=== PATIENT | female | born 1945 | race Caucasian/White ===

== ENCOUNTER 2019-05-13 15:45 | Emergency (ER) | payer MEDICARE, BC ==
--- NOTE | 2019-05-13 16:54 | EDM.PDOC ---
ED HPI GENERAL MEDICAL PROBLEM - General Chief Complaint: Genitourinary Problem Stated Complaint: UTI Time Seen by Provider: 05/13/19 16:52 Source of Information: Reports: Patient History Limitations: Reports: No Limitations - History of Present Illness INITIAL COMMENTS - FREE TEXT/NARRATIVE: 74-year-old female who reports 2 days ago began with lightheadedness, right flank pain that has been intermittent and "itching" with urination. She reports that she had similar symptoms in the past because of low sodium and also because of a "bladder infection" back in December that lasted for 2 months and for which she was tested through the [facility]. The pain in her right flank is rated by her as a 2/10. It is a sharp/crampy type pain. It is not present now. It seems to come and go. She also has noticed over the past day that she has had some pink tinged urine. No back pain. No nausea or vomiting. No fevers or chills. She's been eating and drinking normally. She does feel fatigued and tired over the past few days as well. There are no other associated signs or symptoms. There are no other modifying factors. 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: Other (see below) (Nothing) R lower abdomen Pain Score (Numeric/FACES): 2 - Related Data Allergies Allergy/AdvReac Type Severity Reaction Status Date / Time codeine Allergy Confusion Verified 05/13/19 16:04 erythromycin base Allergy Rash Verified 05/13/19 16:04 [Erythromycin Base] indomethacin Allergy Cannot Verified 05/13/19 16:04 Remember meperidine HCl [From Demerol] Allergy Hypotension Verified 05/13/19 16:04 niacin Allergy Rash Verified 05/13/19 16:04 prednisone Allergy Rash Verified 05/13/19 16:04 pregabalin Allergy Cannot Verified 05/13/19 16:04 Remember Sulfa (Sulfonamide Allergy Rash Verified 05/13/19 16:04 Antibiotics) tramadol Allergy Dizziness Verified 05/13/19 16:04 zoster vaccine live Allergy Swelling Verified 05/13/19 16:04 [From ZOSTAVAX (PF)] Home Meds: Home Meds Cholecalciferol (Vitamin D3) [Vitamin D] 2,000 unit PO DAILY 07/08/13 [History] Estrogen,Con/M-Progest Acet [Prempro 0.3 MG-1.5 MG] 1 tab PO DAILY 07/08/13 [ History] carBAMazepine [Carbamazepine] 400 mg PO 1400 07/08/13 [History] Aspirin [Aspirin EC] 325 mg PO DAILY 05/13/19 [History] Estradiol [Estrace] 1 gm VG MOFR 05/13/19 [History] Losartan Potassium 75 mg DAILY 05/13/19 [History] Metoprolol Succinate 50 mg 1800 05/13/19 [History] atorvaSTATin Calcium [Atorvastatin Calcium] 40 mg BEDTIME 05/13/19 [History] carBAMazepine [Carbamazepine] 600 mg PO BID 05/13/19 [History] Past Medical History Cardiovascular History: Reports: High Cholesterol, Hypertension, Other (See Below) Other Cardiovascular History: mitral valve regurgiation Gastrointestinal History: Reports: GERD Genitourinary History: Reports: UTI, Recurrent 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: Musculoskeletal History: Reports: Fracture Other Musculoskeletal History: hx fx L toes Neurological History: Reports: Other (See Below) (Trigeminal neuralgia) Psychiatric History: Reports: Anxiety, Depression Endocrine/Metabolic History: Reports: Obesity/BMI 30+ - Infectious Disease History Infectious Disease History: Reports: Chicken Pox, Measles - Past Surgical History HEENT Surgical History: Reports: Cataract Surgery, Tonsillectomy GI Surgical History: Reports: Cholecystectomy, Colonoscopy, EGD Musculoskeletal Surgical History: Reports: None Social & Family History - Tobacco Use Smoking Status *Q: Never Smoker - Caffeine Use Caffeine Use: Reports: None - Alcohol Use Alcohol Use History: No - Recreational Drug Use Recreational Drug Use: No - Living Situation & Occupation Living situation: Reports: Occupation: Retired Social History Comment: Lives alone. ED ROS GENERAL - Review of Systems Review Of Systems: See Below Constitutional: Reports: Fatigue HEENT: Reports: No Symptoms Respiratory: Reports: No Symptoms Cardiovascular: Reports: Lightheadedness GI/Abdominal: Reports: No Symptoms : Reports: Dysuria, Flank Pain (Right) Musculoskeletal: Reports: No Symptoms Skin: Reports: No Symptoms Neurological: Reports: Dizziness (Mild) Hematologic/Lymphatic: Reports: No Symptoms Immunologic: Reports: No Symptoms ED EXAM, GENERAL - Physical Exam Exam: See Below Exam Limited By: No Limitations General Appearance: Alert, WD/WN, No Apparent Distress, Other (Nontoxic appearing) Eye Exam: Bilateral Eye: EOMI, Normal Inspection, PERRL Ears: Normal External Exam Ear Exam: Bilateral Ear: Auricle Normal Nose: Normal Inspection, Normal Mucosa, No Blood Throat/Mouth: Normal Inspection, Normal Lips, Normal Oropharynx, Normal Voice, No Airway Compromise Head: Atraumatic, Normocephalic Neck: Normal Inspection, Supple, Non-Tender, Full Range of Motion Respiratory/Chest: No Respiratory Distress, Lungs Clear, Normal Breath Sounds, No Accessory Muscle Use, Chest Non-Tender Cardiovascular: Normal Peripheral Pulses, Regular Rate, Rhythm, No Edema, No JVD Peripheral Pulses: 2+: Radial (L), Radial (R), Dorsalis Pedis (L), Dorsalis Pedis (R) GI/Abdominal: Normal Bowel Sounds, Soft, Non-Tender, No Mass Back Exam: Normal Inspection Extremities: Normal Inspection, Normal Range of Motion, Non-Tender, No Pedal Edema, Normal Capillary Refill, Other (Radial and dorsalis pedis pulses are present and symmetric bilaterally.) Neurological: Alert, Oriented, CN II-XII Intact, Normal Cognition, No Motor/ Sensory Deficits Skin Exam: Warm, Dry, Intact, Normal Color, No Rash EKG INTERPRETATION EKG Date: 05/13/19 Time: 16:52 Rhythm: NSR Rate (Beats/Min): 65 [place]: Normal P-Wave: Present QRS: Normal ST-T: Normal QT: Normal Comparison: No Change (From previous EKG performed on 11/17/2014.) EKG Interpretation Comments: Normal EKG. Course - Vital Signs Last Recorded V/S: Last Vital Signs Temp 36.4 C 05/13/19 15:54 Pulse 62 05/13/19 17:15 Resp 18 05/13/19 17:15 BP 160/97 H 05/13/19 17:15 Pulse Ox 99 05/13/19 17:15 Orthostatic Blood Pressure [ 175/87 Standing] Orthostatic Blood Pressure [ 165/95 Sitting] Orthostatic Blood Pressure [ 163/95 Supine] - Orders/Labs/Meds Orders: Active Orders 24 hr Category Date Time Status EKG Documentation Completion [RC] ASDIRECTED Care 05/13/19 17:10 Active Orthostatic Vital Signs [RC] ASDIRECTED Care 05/13/19 17:09 Active Abdomen Pelvis wo Cont [CT] Stat Exams 05/13/19 17:28 Taken EKG 12 Lead [EK] Routine Ther 05/13/19 17:09 Ordered Labs: Laboratory Tests 05/13/19 05/13/19 05/13/19 Range/Units 16:35 16:50 16:50 WBC 4.8 (4.5-12.0) X10-3/uL RBC 4.19 (3.23-5.20) x10(6)uL Hgb 14.1 (11.5-15.5) g/dL Hct 41.6 (30.0-51.3) % MCV 99.3 H (80-96) fL MCH 33.6 (27.7-33.6) pg MCHC 33.8 (32.2-35.4) g/dL RDW 12.0 (11.5-15.5) % Plt Count 223 (125-369) X10(3)uL MPV 7.1 L (7.4-10.4) fL Neut % (Auto) 56.2 (46-82) % Lymph % (Auto) 26.5 (13-37) % Dukes % (Auto) 12.0 (4-12) % Eos % (Auto) 4 (1.0-5.0) % Baso % (Auto) 1 (0-2) % Neut # (Auto) 2.7 (1.6-8.3) # Lymph # (Auto) 1.3 (0.6-5.0) # Dukes # (Auto) 0.6 (0.0-1.3) # Eos # (Auto) 0.2 (0.0-0.8) # Baso # (Auto) 0.0 (0.0-0.2) # Sodium 135 (135-145) mmol/L Potassium 4.1 (3.5-5.3) mmol/L Chloride 99 L (100-110) mmol/L Carbon Dioxide 30 (21-32) mmol/L BUN 15 (7-18) mg/dL Creatinine 0.6 (0.55-1.02) mg/dL Est Cr Clr Drug Dosing 66.05 mL/min Estimated GFR (MDRD) > 60 (>60) BUN/Creatinine Ratio 25.0 H (9-20) Glucose 100 (80-116) mg/dL Calcium 8.3 L (8.6-10.2) mg/dL Magnesium 1.8 (1.8-2.5) mg/dL Total Bilirubin 0.3 (0.1-1.3) mg/dL AST 30 H (5-25) IU/L ALT 53 H (12-36) U/L Alkaline Phosphatase 150 H (56-112) IU/L C-Reactive Protein (0.5-0.9) mg/dL Total Protein 6.8 (6.0-8.0) g/dL Albumin 3.7 (3.2-4.6) g/dL Globulin 3.1 g/dL Albumin/Globulin Ratio 1.2 Urine Color Yellow (YELLOW) Urine Appearance Clear (CLEAR) Urine pH 6.5 (5.0-6.5) Ur Specific [place] 1.015 (1.010-1.025) Urine Protein Negative (NEGATIVE) mg/dL Urine Glucose (UA) Normal (NORMAL) mg/dL Urine Ketones Negative (NEGATIVE) mg/dL Urine Occult Blood Negative (NEGATIVE) Urine Nitrite Negative (NEGATIVE) Urine Bilirubin Negative (NEGATIVE) Urine Urobilinogen Normal (NEGATIVE) mg/dL Ur Leukocyte Esterase Negative (NEGATIVE) Urine RBC 0-5 (0-5) Urine WBC 0-5 (0-5) Ur Squamous Epith Cells Occasional (NS,R,O) Urine Bacteria Few H (NS) 05/13/19 Range/Units 16:50 WBC (4.5-12.0) X10-3/uL RBC (3.23-5.20) x10(6)uL Hgb (11.5-15.5) g/dL Hct (30.0-51.3) % MCV (80-96) fL MCH (27.7-33.6) pg MCHC (32.2-35.4) g/dL RDW (11.5-15.5) % Plt Count (125-369) X10(3)uL MPV (7.4-10.4) fL Neut % (Auto) (46-82) % Lymph % (Auto) (13-37) % Dukes % (Auto) (4-12) % Eos % (Auto) (1.0-5.0) % Baso % (Auto) (0-2) % Neut # (Auto) (1.6-8.3) # Lymph # (Auto) (0.6-5.0) # Dukes # (Auto) (0.0-1.3) # Eos # (Auto) (0.0-0.8) # Baso # (Auto) (0.0-0.2) # Sodium (135-145) mmol/L Potassium (3.5-5.3) mmol/L Chloride (100-110) mmol/L Carbon Dioxide (21-32) mmol/L BUN (7-18) mg/dL Creatinine (0.55-1.02) mg/dL Est Cr Clr Drug Dosing mL/min Estimated GFR (MDRD) (>60) BUN/Creatinine Ratio (9-20) Glucose (80-116) mg/dL Calcium (8.6-10.2) mg/dL Magnesium (1.8-2.5) mg/dL Total Bilirubin (0.1-1.3) mg/dL AST (5-25) IU/L ALT (12-36) U/L Alkaline Phosphatase (56-112) IU/L C-Reactive Protein < 0.2 L (0.5-0.9) mg/dL Total Protein (6.0-8.0) g/dL Albumin (3.2-4.6) g/dL Globulin g/dL Albumin/Globulin Ratio Urine Color (YELLOW) Urine Appearance (CLEAR) Urine pH (5.0-6.5) Ur Specific [place] (1.010-1.025) Urine Protein (NEGATIVE) mg/dL Urine Glucose (UA) (NORMAL) mg/dL Urine Ketones (NEGATIVE) mg/dL Urine Occult Blood (NEGATIVE) Urine Nitrite (NEGATIVE) Urine Bilirubin (NEGATIVE) Urine Urobilinogen (NEGATIVE) mg/dL Ur Leukocyte Esterase (NEGATIVE) Urine RBC (0-5) Urine WBC (0-5) Ur Squamous Epith Cells (NS,R,O) Urine Bacteria (NS) - Radiology Interpretation Free Text/Narrative:: CT scan of abdomen and pelvis showed uterine fibroids. There was no evidence of calculus or hydronephrosis or anything to explain the patient's right flank pain. There were several pulmonary nodules within the lung bases that the radiologist recommended that the patient yet a nonemergent CT scan of the entire chest to evaluate the remainder of the lung parenchyma and for follow-up of the pulmonary nodules. - Re-Assessments/Exams Free Text/Narrative Re-Assessment/Exam: 05/13/19 17:30: The patient's blood tests were reassuringly normal. Her EKG was normal. The urine test was essentially negative. There was trace microscopic hematuria. She is having the right flank pain and some urinary symptoms. This could represent a ureteral calculus and therefore I will send her for ETT of her abdomen and pelvis without IV contrast. 05/13/19 19:55: The patient has remained vitally stable but has had a persistent elevated blood pressure. The results of the CT scan of the abdomen and pelvis have come back showed no definite acute abnormality. I discussed the findings of the CT with the patient and recommended that she follow-up with her primary doctors this next week for recheck of her blood pressure, arrangement for further evaluation of the lung nodules in her chest and for follow-up in regard to her symptoms that caused her to present today. I am not finding anything that needs any acute intervention today. The patient should drink plenty of fluids and take Tylenol as needed for her pain. Departure - Departure Time of Disposition: 20:10 Disposition: Home, Self-Care 01 Condition: Good (Stable) Clinical Impression: Right flank pain, Lightheadedness, Elevated blood pressure reading, Multiple pulmonary nodules - Discharge Information Instructions: Flank Pain, Adult, [id number] Referrals: Gurmeet Eldridge MD [Primary Care Provider] - Forms: ED Department Discharge Additional Instructions: Your blood tests were all reassuringly normal. Your urine test showed no evidence of infection. Your EKG was normal. The CT scan of your abdomen and pelvis showed no acute problem. You do appear to have uterine fibroids as we discussed. You also have several nodules in your lower lungs that were seen on the CT scan. Your blood pressure was also elevated while you were in the emergency department. I am unsure why you are having the lightheadedness and right flank pain. It does not appear to be anything of a serious nature at this point. You will need to follow-up with your primary doctor this next week in regard to your elevated blood pressure, the nodules in your lungs and for the symptoms that cause you to present to the emergency department. Back to the emergency department for marked increase in pain, vomiting, fever or any other concerning sign or symptom. - My Orders Last 24 Hours: My Active Orders 05/13/19 17:09 Orthostatic Vital Signs [RC] ASDIRECTED EKG 12 Lead [EK] Routine 05/13/19 17:10 EKG Documentation Completion [RC] ASDIRECTED 05/13/19 17:28 Abdomen Pelvis wo Cont [CT] Stat - Assessment/Plan Last 24 Hours: My Active Orders 05/13/19 17:09 Orthostatic Vital Signs [RC] ASDIRECTED EKG 12 Lead [EK] Routine 05/13/19 17:10 EKG Documentation Completion [RC] ASDIRECTED 05/13/19 17:28 Abdomen Pelvis wo Cont [CT] Stat
[2019-05-14 00:14] VITALS: BP 174/88
== END 2019-05-13 20:17 | disposition home or self-care (01) ==
LOC: FB.ED 15:45
DX: R10.31 Right lower quadrant pain (principal); R91.8 Other nonspecific abnormal finding of lung field; R03.0 Elevated blood-pressure reading, without diagnosis of hypertension
CPT/HCPCS: 36415; 74176; 80053; 81001; 83735; 85025; 86140; 93005; 99284-25

== ENCOUNTER 2019-10-02 19:00 | Observation (INO) | payer MEDICARE, BC ==
--- NOTE | 2019-10-02 19:09 | EDM.PDOC ---
ED HPI GENERAL MEDICAL PROBLEM - General Stated Complaint: LIGHT HEADED WEAKNESS Time Seen by Provider: 10/02/19 19:07 Source of Information: Reports: Patient History Limitations: Reports: No Limitations - History of Present Illness INITIAL COMMENTS - FREE TEXT/NARRATIVE: 74-year-old female who reports she has been having lightheadedness and fatigue for the past 2-3 weeks. It seems to be worsening with time. She was actually seen in the emergency department at [facility] in [place] one week ago and she was found to have a sodium of 129 and she does have a history of hyponatremia but they felt that this was okay. She did have evidence of a urinary tract infection and the patient reports that she was placed on antibiotic. She was also told to restrict her fluids and apparently her symptoms have not improved. She feels that she is sleeping all the time as feels very tired and fatigued and when she gets up and tries to walk around she feels very dizzy and off balance and the symptoms seem to be much worse today and tonight she has had no nausea or vomiting. No chest pain. He has no pain. She rates her pain as a 0/ 10. There are no other associated signs or symptoms. There are no other modifying factors. Onset: Other (Ongoing problems for the past 2-3 weeks Pasini be worse today) Duration: Getting Worse Location: Reports: Other (No pain. Just lightheadedness and fatigue) Quality: Reports: Other (Not applicable) Severity: Moderate (to the ear.) Improves with: Reports: Rest Worsens with: Reports: Other (Activity), Movement Context: Reports: Other Associated Symptoms: Reports: No Other Symptoms (Except as above). 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: Other (see below) (Nothing) - Related Data Allergies Allergy/AdvReac Type Severity Reaction Status Date / Time codeine Allergy Confusion Verified 05/13/19 16:04 erythromycin base Allergy Rash Verified 05/13/19 16:04 [Erythromycin Base] indomethacin Allergy Cannot Verified 05/13/19 16:04 Remember meperidine HCl [From Demerol] Allergy Hypotension Verified 05/13/19 16:04 niacin Allergy Rash Verified 05/13/19 16:04 prednisone Allergy Rash Verified 05/13/19 16:04 pregabalin Allergy Cannot Verified 05/13/19 16:04 Remember Sulfa (Sulfonamide Allergy Rash Verified 05/13/19 16:04 Antibiotics) tramadol Allergy Dizziness Verified 05/13/19 16:04 zoster vaccine live Allergy Swelling Verified 05/13/19 16:04 [From ZOSTAVAX (PF)] Home Meds: Home Meds Cholecalciferol (Vitamin D3) [Vitamin D] 2,000 unit PO DAILY 07/08/13 [History] Estrogen,Con/M-Progest Acet [Prempro 0.3 MG-1.5 MG] 1 tab PO DAILY 07/08/13 [ History] carBAMazepine [Carbamazepine] 400 mg PO 1400 07/08/13 [History] Aspirin [Aspirin EC] 325 mg PO DAILY 05/13/19 [History] Estradiol [Estrace] 1 gm VG MOFR 05/13/19 [History] Losartan Potassium 75 mg DAILY 05/13/19 [History] Metoprolol Succinate 50 mg 1800 05/13/19 [History] atorvaSTATin Calcium [Atorvastatin Calcium] 40 mg BEDTIME 05/13/19 [History] carBAMazepine [Carbamazepine] 600 mg PO BID 05/13/19 [History] Ciprofloxacin HCl [Cipro] 500 mg PO BID 10/03/19 [History] Past Medical History HEENT History: Reports: Other (See Below) Other HEENT History: hx trigeminal neuragia Cardiovascular History: Reports: High Cholesterol, Hypertension, Other (See Below) Other Cardiovascular History: mitral valve regurgiation Gastrointestinal History: Reports: GERD Genitourinary History: Reports: UTI, Recurrent 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: Musculoskeletal History: Reports: Fracture Other Musculoskeletal History: hx fx L toes Neurological History: Reports: Other (See Below) (Trigeminal neuralgia) Psychiatric History: Reports: Anxiety, Depression Endocrine/Metabolic History: Reports: Obesity/BMI 30+ - Infectious Disease History Infectious Disease History: Reports: Chicken Pox, Measles - Past Surgical History HEENT Surgical History: Reports: Cataract Surgery, Tonsillectomy GI Surgical History: Reports: Cholecystectomy, Colonoscopy, EGD Social & Family History - Tobacco Use Smoking Status *Q: Never Smoker - Caffeine Use Caffeine Use: Reports: None - Alcohol Use Alcohol Use History: No - Living Situation & Occupation Living situation: Reports: Occupation: Retired ED ROS GENERAL - Review of Systems Review Of Systems: See Below Constitutional: Reports: Malaise, Fatigue HEENT: Reports: No Symptoms Respiratory: Reports: No Symptoms Cardiovascular: Reports: Lightheadedness Endocrine: Reports: Fatigue GI/Abdominal: Reports: No Symptoms : Reports: Other (Currently on antibiotics for a urinary tract infection) Musculoskeletal: Reports: No Symptoms Skin: Reports: No Symptoms Neurological: Reports: Dizziness Hematologic/Lymphatic: Reports: No Symptoms Immunologic: Reports: No Symptoms ED EXAM, NEURO - Physical Exam Exam: See Below Exam Limited By: No Limitations General Appearance: Alert, WD/WN, Mild Distress, Other (Fluid and appropriate to conversation.) Eye Exam: Bilateral Eye: EOMI (No nystagmus), Normal Inspection, PERRL Ears: Normal External Exam, Hearing Grossly Normal Nose: Normal Inspection, Normal Mucosa, No Blood Throat/Mouth: Normal Inspection, Normal Oropharynx, Normal Voice, No Airway Compromise Head Exam: Atraumatic, Normocephalic Neck: Normal Inspection, Supple, Non-Tender, Full Range of Motion Respiratory/Chest: No Respiratory Distress, Lungs Clear, Normal Breath Sounds, No Accessory Muscle Use, Chest Non-Tender Cardiovascular: Normal Peripheral Pulses, Regular Rate, Rhythm, No Murmur GI/Abdominal: Normal Bowel Sounds, Soft, Non-Tender, No Mass Neurological: Alert, Normal Mood/Affect, Normal Dorsiflexion, CN II-XII Intact, Normal Plantar Flexion, No Motor/Sensory Deficits, Oriented x 3 Back Exam: Normal Inspection Extremities: Normal Inspection, Normal Range of Motion, Non-Tender, No Pedal Edema, Normal Capillary Refill Psychiatric: Normal Affect Skin Exam: Warm, Dry, Intact, Normal Color, No Rash EKG INTERPRETATION EKG Date: 10/02/19 Time: 19:06 Rhythm: NSR Rate (Beats/Min): 70 [place]: Normal P-Wave: Present QRS: Normal ST-T: Normal QT: Normal Comparison: No Change (Unchanged from EKG performed on 05/13/2019.) Course - Vital Signs Last Recorded V/S: Last Vital Signs Temp 36.8 C 10/03/19 00:00 Pulse 67 10/03/19 00:00 Resp 16 10/03/19 00:00 BP 157/90 H 10/03/19 00:00 Pulse Ox 100 10/03/19 00:15 - Orders/Labs/Meds Orders: Active Orders 24 hr Category Date Time Status Patient Status [ADT] Routine ADT 10/02/19 23:40 Active Cardiac Monitoring [RC] 00,08,16 Care 10/02/19 23:41 Active EKG Documentation Completion [RC] ASDIRECTED Care 10/02/19 20:00 Active Height and Weight [RC] UPON Care 10/02/19 23:39 Active Intake and Output [RC] QSHIFT Care 10/02/19 23:41 Active Oxygen Therapy [RC] PRN Care 10/02/19 23:40 Active Pulse Oximetry [RC] PRN Care 10/02/19 23:41 Active Up With Assistance [RC] ASDIRECTED Care 10/02/19 23:39 Active VTE/DVT Education [RC] Per Unit Routine Care 10/02/19 23:40 Active Vital Signs [RC] Q4H Care 10/02/19 23:40 Active Regular Diet [DIET] Diet 10/03/19 Breakfast Ordered Chest 2V [CR] Stat Exams 10/02/19 20:00 Taken Head wo Cont [CT] Stat Exams 10/02/19 19:58 Taken BASIC METABOLIC PANEL,BMP [CHEM] AM Lab 10/03/19 05:11 Ordered CARBAMAZEPINE,TEGRETOL [CHEM] AM Lab 10/04/19 05:11 Ordered Acetaminophen [Tylenol] Med 10/02/19 23:39 Active 650 mg PO Q4H PRN Ondansetron [Zofran] Med 10/02/19 23:39 Active 4 mg IV Q6H PRN Sodium Chloride 0.9% [Normal Saline] 1,000 ml Med 10/02/19 21:45 Active IV ASDIRECTED Sodium Chloride 0.9% [Saline Flush] Med 10/02/19 19:58 Active 10 ml FLUSH ASDIRECTED PRN Peripheral IV Insertion Adult [OM.PC] Routine Oth 10/02/19 19:58 Ordered Resuscitation Status Routine Resus Stat 10/02/19 23:39 Ordered EKG 12 Lead [EK] Routine Ther 10/02/19 19:58 Ordered Medication Orders Acetaminophen (Tylenol) 650 mg PO Q4H PRN PRN Reason: Pain (Mild 1-3)/fever Sodium Chloride (Normal Saline) 1,000 mls @ 125 mls/hr IV ASDIRECTED JONY Last Admin: 10/03/19 00:00 Dose: 125 mls/hr Ondansetron HCl (Zofran) 4 mg IV Q6H PRN PRN Reason: Nausea/Vomiting Sodium Chloride (Saline Flush) 10 ml FLUSH ASDIRECTED PRN PRN Reason: Keep Vein Open Labs: Laboratory Tests 10/02/19 10/02/19 10/02/19 Range/Units 19:58 20:08 20:08 WBC 6.1 (4.5-12.0) X10-3/uL RBC 3.90 (3.23-5.20) x10(6)uL Hgb 13.6 (11.5-15.5) g/dL Hct 38.7 (30.0-51.3) % MCV 99.3 H (80-96) fL MCH 34.8 H (27.7-33.6) pg MCHC 35.0 (32.2-35.4) g/dL RDW 11.7 (11.5-15.5) % Plt Count 228 (125-369) X10(3)uL MPV 6.1 L (7.4-10.4) fL Neut % (Auto) 68.8 (46-82) % Lymph % (Auto) 18.3 (13-37) % [place] % (Auto) 10.7 (4-12) % Eos % (Auto) 2 (1.0-5.0) % Baso % (Auto) 1 (0-2) % Neut # (Auto) 4.3 (1.6-8.3) # Lymph # (Auto) 1.1 (0.6-5.0) # [place] # (Auto) 0.6 (0.0-1.3) # Eos # (Auto) 0.1 (0.0-0.8) # Baso # (Auto) 0.0 (0.0-0.2) # Sodium 126 L (135-145) mmol/L Potassium 4.4 (3.5-5.3) mmol/L Chloride 91 L D (100-110) mmol/L Carbon Dioxide 26 (21-32) mmol/L BUN 11 (7-18) mg/dL Creatinine 0.6 (0.55-1.02) mg/dL Est Cr Clr Drug Dosing 63.01 mL/min Estimated GFR (MDRD) > 60 (>60) BUN/Creatinine Ratio 18.3 (9-20) Glucose 103 (80-116) mg/dL Calcium 8.4 L (8.6-10.2) mg/dL Magnesium 1.9 (1.8-2.5) mg/dL Total Bilirubin 0.4 (0.1-1.3) mg/dL AST 27 H (5-25) IU/L ALT 33 D (12-36) U/L Alkaline Phosphatase 121 H (56-112) IU/L Troponin I (4.0-60.3) pg/mL Total Protein 6.8 (6.0-8.0) g/dL Albumin 4.2 (3.2-4.6) g/dL Globulin 2.6 g/dL Albumin/Globulin Ratio 1.6 Urine Color Yellow (YELLOW) Urine Appearance Clear (CLEAR) Urine pH 7.0 H (5.0-6.5) Ur Specific [place] 1.015 (1.010-1.025) Urine Protein Negative (NEGATIVE) mg/dL Urine Glucose (UA) Normal (NORMAL) mg/dL Urine Ketones Negative (NEGATIVE) mg/dL Urine Occult Blood Negative (NEGATIVE) Urine Nitrite Negative (NEGATIVE) Urine Bilirubin Negative (NEGATIVE) Urine Urobilinogen Normal (NEGATIVE) mg/dL Ur Leukocyte Esterase Negative (NEGATIVE) Urine RBC Not seen (0-5) Urine WBC 0-5 (0-5) Ur Squamous Epith Cells Rare (NS,R,O) Urine Bacteria Rare H (NS) Carbamazepine (<0.5) ug/mL 10/02/19 10/02/19 Range/Units 20:08 20:08 WBC (4.5-12.0) X10-3/uL RBC (3.23-5.20) x10(6)uL Hgb (11.5-15.5) g/dL Hct (30.0-51.3) % MCV (80-96) fL MCH (27.7-33.6) pg MCHC (32.2-35.4) g/dL RDW (11.5-15.5) % Plt Count (125-369) X10(3)uL MPV (7.4-10.4) fL Neut % (Auto) (46-82) % Lymph % (Auto) (13-37) % [place] % (Auto) (4-12) % Eos % (Auto) (1.0-5.0) % Baso % (Auto) (0-2) % Neut # (Auto) (1.6-8.3) # Lymph # (Auto) (0.6-5.0) # [place] # (Auto) (0.0-1.3) # Eos # (Auto) (0.0-0.8) # Baso # (Auto) (0.0-0.2) # Sodium (135-145) mmol/L Potassium (3.5-5.3) mmol/L Chloride (100-110) mmol/L Carbon Dioxide (21-32) mmol/L BUN (7-18) mg/dL Creatinine (0.55-1.02) mg/dL Est Cr Clr Drug Dosing mL/min Estimated GFR (MDRD) (>60) BUN/Creatinine Ratio (9-20) Glucose (80-116) mg/dL Calcium (8.6-10.2) mg/dL Magnesium (1.8-2.5) mg/dL Total Bilirubin (0.1-1.3) mg/dL AST (5-25) IU/L ALT (12-36) U/L Alkaline Phosphatase (56-112) IU/L Troponin I 6.9 (4.0-60.3) pg/mL Total Protein (6.0-8.0) g/dL Albumin (3.2-4.6) g/dL Globulin g/dL Albumin/Globulin Ratio Urine Color (YELLOW) Urine Appearance (CLEAR) Urine pH (5.0-6.5) Ur Specific [place] (1.010-1.025) Urine Protein (NEGATIVE) mg/dL Urine Glucose (UA) (NORMAL) mg/dL Urine Ketones (NEGATIVE) mg/dL Urine Occult Blood (NEGATIVE) Urine Nitrite (NEGATIVE) Urine Bilirubin (NEGATIVE) Urine Urobilinogen (NEGATIVE) mg/dL Ur Leukocyte Esterase (NEGATIVE) Urine RBC (0-5) Urine WBC (0-5) Ur Squamous Epith Cells (NS,R,O) Urine Bacteria (NS) Carbamazepine 16.8 H* (<0.5) ug/mL Meds: Medications Generic Name Dose Route Start Last Admin Trade Name Freq PRN Reason Stop Dose Admin Acetaminophen 650 mg 10/02/19 23:39 Tylenol PO Q4H PRN Pain (Mild 1-3)/fever Sodium Chloride 1,000 mls @ 125 mls/hr 10/02/19 21:45 10/03/19 00:00 Normal Saline IV 125 mls/hr ASDIRECTED JONY Administration Ondansetron HCl 4 mg 10/02/19 23:39 Zofran IV Q6H PRN Nausea/Vomiting Sodium Chloride 10 ml 10/02/19 19:58 Saline Flush FLUSH ASDIRECTED PRN Keep Vein Open Discontinued Medications Generic Name Dose Route Start Last Admin Trade Name Freq PRN Reason Stop Dose Admin Sodium Chloride 500 mls @ 999 mls/hr 10/02/19 21:36 Normal Saline IV 10/02/19 22:06 .BOLUS ONE - Radiology Interpretation Free Text/Narrative:: Chest x-ray shows no acute disease. CT scan of head shows no acute disease per the radiologist. - Re-Assessments/Exams Free Text/Narrative Re-Assessment/Exam: 10/02/19 23:15: Patient with hyponatremia and a sodium of 126. Patient also has a Tegretol level of 16.9. Her other blood tests were reassuringly normal. Her urinalysis was clear at this point. She appears to be having symptoms related to her hyponatremia and also to Tegretol toxicity. The patient will be admitted and the plan will be to give the patient normal saline, fluid restrict the patient and continue close monitoring with cardiac monitoring and hold her Tegretol. The patient would not be safe because of her low sodium and with her sodium worsening rather than improving since last week. I discussed this with the patient and she is in agreement with this plan. I have placed admission orders. Care the patient to Dr. Sánchez at 7 AM on 10/03/2019. Departure - Departure Time of Disposition: 23:40 Disposition: Refer to Observation Condition: Fair (Stable) Clinical Impression: Hyponatremia Tegretol toxicity Qualifiers: Encounter type: initial encounter Injury intent: accidental or unintentional Qualified Code(s): T42.1X1A - Poisoning by iminostilbenes, accidental ( unintentional), initial encounter - Discharge Information Sepsis Event Note - Focused Exam Vital Signs: Vital Signs Temp Pulse Resp BP Pulse Ox 10/02/19 19:10 36.6 C 70 14 174/89 H 98 Date Exam was Performed: 10/03/19 Time Exam was Performed: 05:32 - My Orders Last 24 Hours: My Active Orders 10/02/19 19:58 Head wo Cont [CT] Stat Sodium Chloride 0.9% [Saline Flush] 10 ml FLUSH ASDIRECTED PRN Peripheral IV Insertion Adult [OM.PC] Routine EKG 12 Lead [EK] Routine 10/02/19 20:00 EKG Documentation Completion [RC] ASDIRECTED Chest 2V [CR] Stat 10/02/19 21:45 Sodium Chloride 0.9% [Normal Saline] 1,000 ml IV ASDIRECTED 10/02/19 23:39 Height and Weight [RC] UPON Up With Assistance [RC] ASDIRECTED Acetaminophen [Tylenol] 650 mg PO Q4H PRN Ondansetron [Zofran] 4 mg IV Q6H PRN Resuscitation Status Routine 10/02/19 23:40 Patient Status [ADT] Routine Oxygen Therapy [RC] PRN VTE/DVT Education [RC] Per Unit Routine Vital Signs [RC] Q4H 10/02/19 23:41 Cardiac Monitoring [RC] 00,08,16 Intake and Output [RC] QSHIFT Pulse Oximetry [RC] PRN 10/03/19 05:11 BASIC METABOLIC PANEL,BMP [CHEM] AM 10/03/19 Breakfast Regular Diet [DIET] 10/04/19 05:11 CARBAMAZEPINE,TEGRETOL [CHEM] AM - Assessment/Plan Last 24 Hours: My Active Orders 10/02/19 19:58 Head wo Cont [CT] Stat Sodium Chloride 0.9% [Saline Flush] 10 ml FLUSH ASDIRECTED PRN Peripheral IV Insertion Adult [OM.PC] Routine EKG 12 Lead [EK] Routine 10/02/19 20:00 EKG Documentation Completion [RC] ASDIRECTED Chest 2V [CR] Stat 10/02/19 21:45 Sodium Chloride 0.9% [Normal Saline] 1,000 ml IV ASDIRECTED 10/02/19 23:39 Height and Weight [RC] UPON Up With Assistance [RC] ASDIRECTED Acetaminophen [Tylenol] 650 mg PO Q4H PRN Ondansetron [Zofran] 4 mg IV Q6H PRN Resuscitation Status Routine 10/02/19 23:40 Patient Status [ADT] Routine Oxygen Therapy [RC] PRN VTE/DVT Education [RC] Per Unit Routine Vital Signs [RC] Q4H 10/02/19 23:41 Cardiac Monitoring [RC] 00,08,16 Intake and Output [RC] QSHIFT Pulse Oximetry [RC] PRN 10/03/19 05:11 BASIC METABOLIC PANEL,BMP [CHEM] AM 10/03/19 Breakfast Regular Diet [DIET] 10/04/19 05:11 CARBAMAZEPINE,TEGRETOL [CHEM] AM
[2019-10-02] MEDS ORDERED: Sodium Chloride 0.9% 10 ML Syringe FLUSH PRN (19:58)
[2019-10-02] MEDS ORDERED: Sodium Chloride 0.9% 500 ML IV ONE (21:36)
[2019-10-02] MEDS ORDERED: Sodium Chloride 0.9% 1,000 ML IV SCH (21:45)
[2019-10-02] MEDS ORDERED: Acetaminophen 325 MG Tab PO PRN (23:39)
[2019-10-02] MEDS ORDERED: Ondansetron 4 MG/2 ML SDV IV PRN (23:39)
[2019-10-03 08:48] VITALS: BP 149/81; PULSE 68
[2019-10-03] MEDS ORDERED: CARBAMAZEPINE 200 MG PO SCH ×2 (09:00→21:00)
[2019-10-03] MEDS ORDERED: Losartan 100 MG Tab *PTOM PO SCH (09:00)
[2019-10-03] MEDS ORDERED: PREMPRO PO SCH (09:00)
[2019-10-03] MEDS ORDERED: Ciprofloxacin 500 MG Tab PO SCH (09:00)
[2019-10-03] MEDS ORDERED: amLODIPine 5 MG Tab *PTOM PO SCH (09:30)
--- NOTE | 2019-10-03 11:43 | CR ---
INDICATION: Lightheadedness. CHEST, TWO VIEWS: PA and lateral views of the chest 10/02/19 were compared with 11/17/14. The heart may be slightly increased in size and appears at the upper limits of normal or slightly enlarged. The aorta is tortuous with calcification in the arch minimally. Overlying EKG leads are noted. A minimal dextroconcave scoliosis of the lower thoracic spine is noted with bridging hyperostotic changes in the mid thoracic spine, moderate to moderately severe degree. A definite active infiltrate or effusion was not identified. Somewhat flattened diaphragm leads suggest progressive COPD. IMPRESSION: 1. No definite acute process with pulmonary markings similar to the previous examination. Somewhat heavy markings at the lung bases are present, however making it difficult to entirely exclude minimal patchy pneumonia. 2. ASHD with cardiomegaly. 3. DJD and minimal scoliosis thoracic spine. MTDD
--- NOTE | 2019-10-03 12:08 | HP ---
ADMISSION DATE: 10/02/2019 CHIEF COMPLAINT: Dizziness, hyponatremia, high Tegretol level, hyperlipidemia, and postmenopausal symptoms. HISTORY OF PRESENT ILLNESS: Mrs. Shi is a 74-year-old woman with longstanding trigeminal neuralgia. She has been maintained on Tegretol for this for many years and within the last year, her dose was increased from 1400 mg today to 1600 mg per day. She came into the emergency room now because of lightheadedness and weakness that have been going on for a couple of weeks. She was found to be hyponatremic in the emergency room and had a high Tegretol level at 16.8. Her sodium was 126, creatinine 0.6. The patient's Tegretol was discontinued. She was started on IV normal saline. She had a head CT that was unremarkable and a chest x-ray that was clear. The patient states she has had problem with hyponatremia over the years. PAST MEDICAL HISTORY: She states she has a valvular heart problem that is followed by her exhibit preparator about every 6 months. She has an appointment this afternoon for that. She has chronic essential hypertension. She is status post T and A, cholecystectomy. She is 4, para 4, normal delivery. She has never had transfusions, jaundice, or hepatitis. She has a left foot fracture, but states that her bone density has been okay. She has had chronic UTIs, chronic cystitis, and had communication through her urologist with the [facility], who told her to stop using antibiotics and put her on a different medication, she does not know the name of. Cataract surgery. MEDICATIONS: 1. Toprol-XL 50 mg daily. 2. Losartan 75 mg daily. 3. Prempro 1 tab daily. 4. She recently was started on Cipro 500 mg b.i.d. for UTI. 5. Atorvastatin 40 mg at bedtime. 6. Estradiol cream vaginally Mondays and Fridays. 7. Vitamin D 2000 units daily. 8. Tegretol 600 mg a.m. and p.m., 400 mg 2 p.m. 9. Aspirin 325 mg daily. ALLERGIES: Codeine caused confusion; erythromycin, rash; Indocin, reaction unknown; Demerol, hypotension; niacin, rash; prednisone, rash; pregabalin, cannot remember; sulfa, rash; tramadol, dizziness, zoster, swelling. HABITS: Nonsmoker, nondrinker, decaf coffee. FAMILY AND SOCIAL HISTORY: The patient has been for 2-1/2 years. She lives in [place]. She has 3 daughters in the [place] area and 1 son in [place]. They lived around the country as her worked for the government. She grew up in the [place] area. REVIEW OF SYSTEMS: GENERAL: No seizures, syncope, or recent significant weight change. SKIN: Negative for rash. HEENT: No recent changes in hearing or vision. She has had cataract surgery with good result. No sore throat or URI. CHEST: No cough or purulent sputum. No chest pain or palpitations. ABDOMEN: No abdominal pain, nausea, or diarrhea. MUSCULOSKELETAL: No joint inflammation, swelling, or skin rash. PHYSICAL EXAMINATION: GENERAL: She is alert and comfortable, but she does report arm pain near her IV attempt sites. VITAL SIGNS: Blood pressure 143/87, pulse 66 and regular, respirations 17, O2 saturation 99% on room air, temperature 97.7, weight 167 pounds. SKIN: Anicteric, warm, dry. No rash. No erythema noted at her tender areas of her left arm, but there is significant edema about the left elbow and down into the forearm. HEENT: Show clear TMs. Pupils are equal and reactive. Oropharynx is clear. NECK: Supple. LUNGS: Clear to the bases. HEART: Regular with a 3/6 systolic murmur over the precordium. No carotid bruits are heard. ABDOMEN: Normal bowel sounds. Soft and nontender. EXTREMITIES: Show no edema in the feet and intact dorsalis pedis pulses. She has swelling about the left elbow and down into the forearm, no erythema, but there is tenderness present. LABORATORY DATA: On admission, hemoglobin 13.6, sodium 126, BUN 11, creatinine 0.6, alkaline phosphatase 121. Urinalysis is negative dipstick, 0-5 white cells, no red cells. Carbamazepine 16.8. ASSESSMENT: A 74-year-old woman with: 1. Hyponatremia and dizziness with lightheadedness secondary to high Tegretol level. 2. Trigeminal neuralgia. 3. Valvular heart disease. 4. Recurrent cystitis, question nonbacterial. 5. Postmenopausal, on ERT. 6. Left arm soreness secondary to IV. PLAN: After missing her dose of 600 mg of Tegretol last evening and not taking any at this morning, she states she is starting to get the left facial pain back. I will resume her Tegretol now at 400 mg a.m. and 2 p.m., and 600 mg at bedtime. We will also treat her with just Tylenol for the arm pain for the moment. We will get her up walking. Discontinue her IV and allow her to be discharged so she can make her afternoon Cardiology appointment in [place]. She is to follow up with her regular doctor and her neurologist romeo /[id number] URVASHI/NARCISO
[2019-10-03] MEDS ORDERED: Metoprolol Succinate 50 MG Tab.ER PO SCH (18:00)
[2019-10-03] MEDS ORDERED: atorvaSTATin 40 MG Tab PO SCH (21:00)
--- NOTE | 2019-10-04 06:04 | DISCH ---
DISCHARGE DATE: 10/03/2019 PRIMARY FINAL DIAGNOSIS: High Tegretol level with dizziness, lightheadedness, and hyponatremia. OTHER DIAGNOSES: Trigeminal neuralgia; hypertension; recurrent cystitis; postmenopausal, on estrogen replacement therapy; and left arm pain. SUMMARY: Mrs. Shi was admitted from the emergency room on 10/02 because of dizziness, lightheadedness and a Tegretol level of 16.8. Her evening dose of Tegretol was held, and by morning, she started to get left facial pain back again. The dose will be resumed at 400 mg a.m. and 1400 hours and 600 mg at bedtime. Her lightheadedness has improved. She is to follow up with Kevan Romano at [facility] and her neurologist. She also has a Cardiology appointment this afternoon to follow up on her valvular heart disease. /[id number] URVASHI/NARCISO
== END 2019-10-03 12:40 | disposition home or self-care (01) ==
LOC: FB.ED 19:00 → FB.MS 23:49
PROVIDERS: ADMIT Emergency Medicine; ATTEND Family Medicine
DX: R42 Dizziness and giddiness (principal); T42.1X5A Adverse effect of iminostilbenes, initial encounter; G50.0 Trigeminal neuralgia; I10 Essential (primary) hypertension; N30.90 Cystitis, unspecified without hematuria; N95.9 Unspecified menopausal and perimenopausal disorder; E78.5 Hyperlipidemia, unspecified; I38 Endocarditis, valve unspecified; E87.1 Hypo-osmolality and hyponatremia; M79.602 Pain in left arm; Z79.899 Other long term (current) drug therapy; Z79.82 Long term (current) use of aspirin; Z88.5 Allergy status to narcotic agent; Z88.1 Allergy status to other antibiotic agents; Z88.8 Allergy status to other drugs, medicaments and biological substances; Z88.2 Allergy status to sulfonamides; Z79.890 Hormone replacement therapy
CPT/HCPCS: 36415; 70450; 71046; 80048; 80053; 80156; 81001; 83735; 84484; 85025; 93005; 93010; 96360; 96361; 99284; 99285-25; A9270-GY; G0378; J7030

== ENCOUNTER 2020-02-24 19:54 | Inpatient (IN) | payer MEDICARE, BC ==
[2020-02-24] MEDS ORDERED: Sodium Chloride 0.9% 10 ML Syringe FLUSH PRN (20:38)
[2020-02-24] MEDS ORDERED: Sodium Chloride 0.9% 500 ML IV ONE (20:40)
[2020-02-24] MEDS ORDERED: hydrALAZINE 20 MG/ML SDV IVPUSH ONE (20:41)
--- NOTE | 2020-02-24 20:48 | EDM.PDOC ---
ED HPI GENERAL MEDICAL PROBLEM - General Chief Complaint: Headache Stated Complaint: LIGHT HEADEDNESS Time Seen by Provider: 02/24/20 20:44 Source of Information: Reports: Patient History Limitations: Reports: No Limitations - History of Present Illness INITIAL COMMENTS - FREE TEXT/NARRATIVE: Presents with headache, nausea and dizziness. Amlodipine was discontinued due to pedal edema and Spironolactone-HCTZ was started 2 days ago. Dizziness has been present for 2-3 days. Headache began this morning. She denies chest pain, SOB, abdominal pain, F/C, or focal weakness. PMHx significant for Trigeminal Neuralgia and HTN. - Related Data Allergies Allergy/AdvReac Type Severity Reaction Status Date / Time codeine Allergy Confusion Verified 02/24/20 22:27 erythromycin base Allergy Rash Verified 02/24/20 22:27 [Erythromycin Base] indomethacin Allergy Cannot Verified 02/24/20 22:27 Remember meperidine HCl [From Demerol] Allergy Hypotension Verified 02/24/20 22:27 niacin Allergy Rash Verified 02/24/20 22:27 prednisone Allergy Rash Verified 02/24/20 22:27 pregabalin Allergy Cannot Verified 02/24/20 22:27 Remember Sulfa (Sulfonamide Allergy Rash Verified 02/24/20 22:27 Antibiotics) tramadol Allergy Dizziness Verified 02/24/20 22:27 zoster vaccine live Allergy Swelling Verified 02/24/20 22:27 [From ZOSTAVAX (PF)] Home Meds: Home Meds Metoprolol Succinate 50 mg PO BEDTIME 05/13/19 [History] atorvaSTATin Calcium [Atorvastatin Calcium] 40 mg PO BEDTIME 05/13/19 [History] Losartan [Cozaar] 100 mg PO BEDTIME 10/03/19 [History] .Probiotic Advanced 1 dose PO DAILY 02/24/20 [History] .Vitamin D 2,000 units PO DAILY 02/24/20 [History] Aspirin 81 mg PO DAILY 02/24/20 [History] Baclofen 15 mg PO TID 02/24/20 [History] Estrogen,Con/M-Progest Acet [Prempro 0.3 MG-1.5 MG] 1 tab PO DAILY 02/24/20 [History] Spironolact/Hydrochlorothiazid [Spironolactone-HCTZ 25-25] 0.5 tab PO DAILY 02/24/20 [History] carBAMazepine [Carbamazepine ER] 400 mg PO TID 02/24/20 [History] Past Medical History HEENT History: Reports: Other (See Below) Other HEENT History: hx trigeminal neuragia Cardiovascular History: Reports: High Cholesterol, Hypertension, Other (See Be low) Other Cardiovascular History: mitral valve regurgiation Gastrointestinal History: Reports: GERD Genitourinary History: Reports: UTI, Recurrent [employer] History: Reports: Other [employer] History: Musculoskeletal History: Reports: Fracture Other Musculoskeletal History: hx fx L toes Neurological History: Reports: Other (See Below) (Trigeminal neuralgia) Psychiatric History: Reports: Anxiety, Depression Endocrine/Metabolic History: Reports: Obesity/BMI 30+ - Infectious Disease History Infectious Disease History: Reports: Chicken Pox, Measles - Past Surgical History HEENT Surgical History: Reports: Cataract Surgery, Tonsillectomy GI Surgical History: Reports: Cholecystectomy, Colonoscopy, EGD Social & Family History - Family History Family Medical History: Noncontributory - Caffeine Use Caffeine Use: Reports: None Other Caffeine Use: decaf coffee; rarely drink soda and only drinks the small ca ns. - Living Situation & Occupation Living situation: Reports: Occupation: Retired ED ROS GENERAL - Review of Systems Review Of Systems: Comprehensive ROS is negative, except as noted in HPI. ED EXAM, DIZZINESS - Physical Exam Exam: See Below Exam Limited By: No Limitations General Appearance: Alert, WD/WN, No Apparent Distress Eye Exam: Bilateral Eye: EOMI, PERRL Nose: Normal Inspection Throat/Mouth: Normal Oropharynx, No Airway Compromise Head Exam: Atraumatic, Normocephalic Neck: Supple Respiratory/Chest: No Respiratory Distress, Lungs Clear, Normal Breath Sounds Cardiovascular: Regular Rate, Rhythm, No Murmur GI/Abdominal: Normal Bowel Sounds, Soft, Non-Tender, No Distention Neurological: Alert, CN II-XII Intact, No Motor/Sensory Deficits, Oriented x 3 Back Exam: Full Range of Motion Extremities: Normal Range of Motion Psychiatric: Normal Affect, Normal Mood Skin Exam: Warm, Dry, Intact EKG INTERPRETATION EKG Date: 02/24/20 Time: 20:03 Rhythm: NSR Rate (Beats/Min): 74 Spur: LAD-Left Spur Deviation P-Wave: Present QRS: Normal ST-T: Normal QT: Normal Comparison: No Change (10/02/19) Course - Vital Signs Last Recorded V/S: Last Vital Signs Temp 36.6 C 02/24/20 19:55 Pulse 78 02/24/20 19:55 Resp 18 02/24/20 19:55 BP 174/100 H 02/24/20 19:55 Pulse Ox 97 02/24/20 19:55 - Orders/Labs/Meds Orders: Active Orders 24 hr Category Date Time Status Admission Status [Patient Status] [ADT] Routine ADT 02/24/20 22:23 Active EKG Documentation Completion [RC] ASDIRECTED Care 02/24/20 20:39 Active Head wo Cont [CT] Stat Exams 02/24/20 21:29 Ordered CULTURE URINE [RM] Stat Lab 02/24/20 21:30 Received Sodium Chloride 0.9% [Normal Saline] 1,000 ml Med 02/24/20 22:15 Active IV ASDIRECTED Sodium Chloride 0.9% [Saline Flush] Med 02/24/20 20:38 Active 10 ml FLUSH ASDIRECTED PRN Saline Lock Insert [OM.PC] Routine Oth 02/24/20 20:38 Ordered EKG 12 Lead [EK] Stat Ther 02/24/20 20:39 Ordered Medication Orders Aspirin (Aspirin) 81 mg PO DAILY JONY Atorvastatin Calcium (Lipitor) 40 mg PO BEDTIME JONY Baclofen (Lioresal) 15 mg PO TID JONY Cefuroxime Axetil (Ceftin) 250 mg PO BID JONY Hydralazine HCl (Apresoline) 5 mg IVPUSH ONETIME PRN PRN Reason: Hypertension Sodium Chloride (Normal Saline) 1,000 mls @ 100 mls/hr IV ASDIRECTED JONY Last Admin: 02/24/20 22:00 Dose: 100 mls/hr Documented by: BRENLOR Losartan Potassium (Cozaar) 100 mg PO BEDTIME JONY Metoprolol Succinate (Toprol Xl) 50 mg PO BEDTIME JONY Ondansetron HCl (Zofran) 4 mg IV Q6H PRN PRN Reason: Nausea/Vomiting Sodium Chloride (Saline Flush) 10 ml FLUSH ASDIRECTED PRN PRN Reason: Keep Vein Open Labs: Laboratory Tests 02/24/20 02/24/20 02/24/20 Range/Units 20:50 20:50 20:50 WBC 8.2 (4.5-12.0) X10-3/uL RBC 4.09 (3.23-5.20) x10(6)uL Hgb 13.5 (11.5-15.5) g/dL Hct 41.1 (30.0-51.3) % MCV 100.5 H (80-96) fL MCH 33.1 (27.7-33.6) pg MCHC 32.9 (32.2-35.4) g/dL RDW 12.2 (11.5-15.5) % Plt Count 193 (125-369) X10(3)uL MPV 6.6 L (7.4-10.4) fL Neut % (Auto) 83.2 H (46-82) % Lymph % (Auto) 9.5 L (13-37) % Rock % (Auto) 5.9 (4-12) % Eos % (Auto) 1 (1.0-5.0) % Baso % (Auto) 1 (0-2) % Neut # (Auto) 6.8 (1.6-8.3) # Lymph # (Auto) 0.8 (0.6-5.0) # Rock # (Auto) 0.5 (0.0-1.3) # Eos # (Auto) 0.0 (0.0-0.8) # Baso # (Auto) 0.1 (0.0-0.2) # PT 10.3 (9.0-11.1) sec INR 0.95 L (1.00-1.24) APTT 24.9 (24.4-33.2) SECONDS Sodium 126 L (135-145) mmol/L Potassium 3.8 (3.5-5.3) mmol/L Chloride 90 L (100-110) mmol/L Carbon Dioxide 25 (21-32) mmol/L BUN 12 (7-18) mg/dL Creatinine 0.6 (0.55-1.02) mg/dL Est Cr Clr Drug Dosing TNP Estimated GFR (MDRD) > 60 (>60) BUN/Creatinine Ratio 20.0 (9-20) Glucose 115 (80-116) mg/dL Calcium 8.7 (8.6-10.2) mg/dL Magnesium (1.8-2.5) mg/dL Total Bilirubin 0.6 (0.1-1.3) mg/dL AST 26 H (5-25) IU/L ALT 32 (12-36) U/L Alkaline Phosphatase 125 H (56-112) IU/L Troponin I (4.0-60.3) pg/mL Total Protein 6.9 (6.0-8.0) g/dL Albumin 4.3 (3.2-4.6) g/dL Globulin 2.6 g/dL Albumin/Globulin Ratio 1.7 Urine Color (YELLOW) Urine Appearance (CLEAR) Urine pH (5.0-6.5) Ur Specific [place] (1.010-1.025) Urine Protein (NEGATIVE) mg/dL Urine Glucose (UA) (NORMAL) mg/dL Urine Ketones (NEGATIVE) mg/dL Urine Occult Blood (NEGATIVE) Urine Nitrite (NEGATIVE) Urine Bilirubin (NEGATIVE) Urine Urobilinogen (NEGATIVE) mg/dL Ur Leukocyte Esterase (NEGATIVE) Urine RBC (0-5) Urine WBC (0-5) Ur Squamous Epith Cells (NS,R,O) Urine Bacteria (NS) Carbamazepine (<0.5) ug/mL 02/24/20 02/24/20 02/24/20 Range/Units 20:50 20:50 20:50 WBC (4.5-12.0) X10-3/uL RBC (3.23-5.20) x10(6)uL Hgb (11.5-15.5) g/dL Hct (30.0-51.3) % MCV (80-96) fL MCH (27.7-33.6) pg MCHC (32.2-35.4) g/dL RDW (11.5-15.5) % Plt Count (125-369) X10(3)uL MPV (7.4-10.4) fL Neut % (Auto) (46-82) % Lymph % (Auto) (13-37) % Rock % (Auto) (4-12) % Eos % (Auto) (1.0-5.0) % Baso % (Auto) (0-2) % Neut # (Auto) (1.6-8.3) # Lymph # (Auto) (0.6-5.0) # Rock # (Auto) (0.0-1.3) # Eos # (Auto) (0.0-0.8) # Baso # (Auto) (0.0-0.2) # PT (9.0-11.1) sec INR (1.00-1.24) APTT (24.4-33.2) SECONDS Sodium (135-145) mmol/L Potassium (3.5-5.3) mmol/L Chloride (100-110) mmol/L Carbon Dioxide (21-32) mmol/L BUN (7-18) mg/dL Creatinine (0.55-1.02) mg/dL Est Cr Clr Drug Dosing Estimated GFR (MDRD) (>60) BUN/Creatinine Ratio (9-20) Glucose (80-116) mg/dL Calcium (8.6-10.2) mg/dL Magnesium 1.8 (1.8-2.5) mg/dL Total Bilirubin (0.1-1.3) mg/dL AST (5-25) IU/L ALT (12-36) U/L Alkaline Phosphatase (56-112) IU/L Troponin I 7.0 (4.0-60.3) pg/mL Total Protein (6.0-8.0) g/dL Albumin (3.2-4.6) g/dL Globulin g/dL Albumin/Globulin Ratio Urine Color (YELLOW) Urine Appearance (CLEAR) Urine pH (5.0-6.5) Ur Specific [place] (1.010-1.025) Urine Protein (NEGATIVE) mg/dL Urine Glucose (UA) (NORMAL) mg/dL Urine Ketones (NEGATIVE) mg/dL Urine Occult Blood (NEGATIVE) Urine Nitrite (NEGATIVE) Urine Bilirubin (NEGATIVE) Urine Urobilinogen (NEGATIVE) mg/dL Ur Leukocyte Esterase (NEGATIVE) Urine RBC (0-5) Urine WBC (0-5) Ur Squamous Epith Cells (NS,R,O) Urine Bacteria (NS) Carbamazepine 13.7 H (<0.5) ug/mL 02/24/20 Range/Units 21:30 WBC (4.5-12.0) X10-3/uL RBC (3.23-5.20) x10(6)uL Hgb (11.5-15.5) g/dL Hct (30.0-51.3) % MCV (80-96) fL MCH (27.7-33.6) pg MCHC (32.2-35.4) g/dL RDW (11.5-15.5) % Plt Count (125-369) X10(3)uL MPV (7.4-10.4) fL Neut % (Auto) (46-82) % Lymph % (Auto) (13-37) % Rock % (Auto) (4-12) % Eos % (Auto) (1.0-5.0) % Baso % (Auto) (0-2) % Neut # (Auto) (1.6-8.3) # Lymph # (Auto) (0.6-5.0) # Rock # (Auto) (0.0-1.3) # Eos # (Auto) (0.0-0.8) # Baso # (Auto) (0.0-0.2) # PT (9.0-11.1) sec INR (1.00-1.24) APTT (24.4-33.2) SECONDS Sodium (135-145) mmol/L Potassium (3.5-5.3) mmol/L Chloride (100-110) mmol/L Carbon Dioxide (21-32) mmol/L BUN (7-18) mg/dL Creatinine (0.55-1.02) mg/dL Est Cr Clr Drug Dosing Estimated GFR (MDRD) (>60) BUN/Creatinine Ratio (9-20) Glucose (80-116) mg/dL Calcium (8.6-10.2) mg/dL Magnesium (1.8-2.5) mg/dL Total Bilirubin (0.1-1.3) mg/dL AST (5-25) IU/L ALT (12-36) U/L Alkaline Phosphatase (56-112) IU/L Troponin I (4.0-60.3) pg/mL Total Protein (6.0-8.0) g/dL Albumin (3.2-4.6) g/dL Globulin g/dL Albumin/Globulin Ratio Urine Color Yellow (YELLOW) Urine Appearance Slightly cloudy (CLEAR) Urine pH 7.0 H (5.0-6.5) Ur Specific [place] 1.015 (1.010-1.025) Urine Protein Negative (NEGATIVE) mg/dL Urine Glucose (UA) Normal (NORMAL) mg/dL Urine Ketones 50 H (NEGATIVE) mg/dL Urine Occult Blood Trace (NEGATIVE) Urine Nitrite Negative (NEGATIVE) Urine Bilirubin Negative (NEGATIVE) Urine Urobilinogen Normal (NEGATIVE) mg/dL Ur Leukocyte Esterase Moderate H (NEGATIVE) Urine RBC 0-5 (0-5) Urine WBC 5-10 H (0-5) Ur Squamous Epith Cells Few H (NS,R,O) Urine Bacteria Few H (NS) Carbamazepine (<0.5) ug/mL Meds: Medications Generic Name Dose Route Start Last Admin Trade Name Freq PRN Reason Stop Dose Admin Aspirin 81 mg 02/25/20 09:00 Aspirin PO DAILY [facility] Atorvastatin Calcium 40 mg 02/26/20 22:52 Lipitor PO BEDTIME JONY Baclofen 15 mg 02/24/20 22:51 Lioresal PO TID JONY Cefuroxime Axetil 250 mg 02/24/20 22:45 Ceftin PO BID JONY Hydralazine HCl 5 mg 02/24/20 22:43 Apresoline IVPUSH ONETIME PRN Hypertension Sodium Chloride 1,000 mls @ 100 mls/hr 02/24/20 22:15 02/24/20 22:00 Normal Saline IV 100 mls/hr ASDIRECTED JONY Administration Losartan Potassium 100 mg 02/24/20 22:51 Cozaar PO BEDTIME JONY Metoprolol Succinate 50 mg 02/24/20 22:51 Toprol Xl PO BEDTIME JONY Ondansetron HCl 4 mg 02/24/20 22:35 Zofran IV Q6H PRN Nausea/Vomiting Sodium Chloride 10 ml 02/24/20 20:38 Saline Flush FLUSH ASDIRECTED PRN Keep Vein Open Discontinued Medications Generic Name Dose Route Start Last Admin Trade Name Freq PRN Reason Stop Dose Admin Hydralazine HCl 10 mg 02/24/20 20:41 02/24/20 21:08 Apresoline IVPUSH 02/24/20 20:42 10 mg ONETIME ONE Administration Sodium Chloride 500 mls @ 500 mls/hr 02/24/20 20:40 02/24/20 21:04 Normal Saline IV 02/24/20 21:39 500 mls/hr .BOLUS ONE Administration Losartan Potassium 50 mg 02/25/20 09:00 Cozaar PO DAILY JONY Ondansetron HCl 4 mg 02/24/20 21:57 02/24/20 22:10 Zofran IVPUSH 02/24/20 21:58 4 mg ONETIME ONE Administration - Radiology Interpretation Free Text/Narrative:: Study: CT Head -02/24/2020 10:00:56 PM Ordering Physician: ANUSHKA Final Report: Indication: Nausea, vomiting, frontal headache, light sensitivity and slight blurry vision Technique: Nonenhanced axial CT imaging through the head. Sagittal and coronal reconstructions are provided. Comparison: CT head without contrast 10/02/2019 Findings: There is no intracranial hemorrhage, edema, or mass effect. Perez-white matter differentiation is preserved. The ventricles are normal in size. The basal c isterns are patent. The calvarium is intact. The visualized paranasal sinuses and mastoid air cells are aerated. Impression: No acute intracranial process. Please note that all CT scans at this facility use dose modulation, iterative reconstruction, and/or weight-based dosing when appropriate to reduce radiation dose to as low as reasonably achievable. Dictated by Merlyn Lai MD @ Feb 24 2020 10:01PM (Electronic Signature) - Re-Assessments/Exams Free Text/Narrative Re-Assessment/Exam: 02/24/20 22:20 BP improved to 131/73 (from 174/100) after Hydralazine 10mg IV. Headache and nausea slightly improved. 02/24/20 22:31 Poison control consulted re elevated Tegretol level, recommends holding the medication and recheck level in the morning. Departure - Departure Time of Disposition: 22:25 Disposition: Refer to Observation Condition: Fair Clinical Impression: Hypertensive urgency, Hyponatremia Carbamazepine toxicity Qualifiers: Encounter type: initial encounter Injury intent: accidental or unintentional Qualified Code(s): T42.1X1A - Poisoning by iminostilbenes, accidental (unintentional), initial encounter UTI (urinary tract infection) Qualifiers: Urinary tract infection type: acute cystitis Hematuria presence: without hematuria Qualified Code(s): N30.00 - Acute cystitis without hematuria - Discharge Information *PRESCRIPTION DRUG MONITORING PROGRAM REVIEWED*: No *COPY OF PRESCRIPTION DRUG MONITORING REPORT IN PATIENT ISABEL: Not Applicable Sepsis Event Note (ED) - Focused Exam Vital Signs: Vital Signs Temp Pulse Resp BP Pulse Ox 02/24/20 19:55 36.6 C 78 18 174/100 H 97 - My Orders Last 24 Hours: My Active Orders 02/24/20 20:38 Sodium Chloride 0.9% [Saline Flush] 10 ml FLUSH ASDIRECTED PRN Saline Lock Insert [OM.PC] Routine 02/24/20 20:39 EKG Documentation Completion [RC] ASDIRECTED EKG 12 Lead [EK] Stat 02/24/20 21:29 Head wo Cont [CT] Stat 02/24/20 21:30 CULTURE URINE [RM] Stat 02/24/20 22:15 Sodium Chloride 0.9% [Normal Saline] 1,000 ml IV ASDIRECTED 02/24/20 22:23 Admission Status [Patient Status] [ADT] Routine - Assessment/Plan Last 24 Hours: My Active Orders 02/24/20 20:38 Sodium Chloride 0.9% [Saline Flush] 10 ml FLUSH ASDIRECTED PRN Saline Lock Insert [OM.PC] Routine 02/24/20 20:39 EKG Documentation Completion [RC] ASDIRECTED EKG 12 Lead [EK] Stat 02/24/20 21:29 Head wo Cont [CT] Stat 02/24/20 21:30 CULTURE URINE [RM] Stat 02/24/20 22:15 Sodium Chloride 0.9% [Normal Saline] 1,000 ml IV ASDIRECTED 02/24/20 22:23 Admission Status [Patient Status] [ADT] Routine
[2020-02-24] MEDS ORDERED: Ondansetron 4 MG/2 ML SDV IVPUSH ONE (21:57)
[2020-02-24] MEDS: Sodium Chloride 0.9% 1,000 ML IV SCH (22:00)
[2020-02-24] MEDS ORDERED: hydrALAZINE 20 MG/ML SDV IVPUSH PRN (22:43)
[2020-02-24] MEDS ORDERED: Metoprolol Succinate 50 MG Tab.ER PO SCH (22:51)
[2020-02-24] MEDS ORDERED: Losartan 100 MG Tab PO SCH (22:51)
[2020-02-24] MEDS ORDERED: Acetaminophen 325 MG Tab PO PRN (23:38)
[2020-02-24] MEDS ORDERED: Losartan 50 MG Tab ONE (23:49)
[2020-02-24] MEDS: Cefuroxime 250 MG Tab PO SCH (23:54)
[2020-02-24] MEDS: BACLOFEN 10 MG PO SCH (23:54)
[2020-02-25] MEDS ORDERED: atorvaSTATin 40 MG Tab PO ONE
[2020-02-25] MEDS ORDERED: BACLOFEN 10 MG PO ONE
[2020-02-25] MEDS ORDERED: Metoprolol Succinate 50 MG Tab.ER PO ONE
[2020-02-25] MEDS ORDERED: Losartan 100 MG Tab PO ONE
[2020-02-25] MEDS: Cefuroxime 250 MG Tab PO SCH ×2 (00:33→12:47)
[2020-02-25] MEDS: BACLOFEN 10 MG PO SCH ×4 (00:34→23:15)
[2020-02-25] MEDS: HYDROmorphone 2 MG/ML SDV IVPUSH PRN ×3 (01:15→21:05)
[2020-02-25] MEDS: Ondansetron 4 MG/2 ML SDV IV PRN (03:20)
[2020-02-25] MEDS: Sodium Chloride 0.9% 1,000 ML IV SCH ×2 (07:37→18:50)
[2020-02-25] MEDS ORDERED: Metoclopramide 10 MG/2 ML SDV IVPUSH ONE (08:44)
[2020-02-25] MEDS ORDERED: Losartan 50 MG Tab PO SCH (09:00)
[2020-02-25] MEDS: Aspirin 81 MG Tab.Chew PO SCH (12:46)
[2020-02-25] MEDS: Ciprofloxacin in D5W 100 ML IV SCH (12:57)
[2020-02-25] MEDS: hydrALAZINE 25 MG Tab PO SCH ×2 (17:02→21:31)
--- NOTE | 2020-02-25 19:12 | PCM.HP.2 ---
H&P History of Present Illness - General Date of Service: 02/25/20 Admit Problem/Dx: Admission Diagnosis/Problem Admission Diagnosis/Problem Hypertensive urgency Source of Information: Patient, EMS Notes Reviewed, Family - History of Present Illness Initial Comments - Free Text/Narative: Abena is 74 yr old female who presents with headache started this morning, nausea and dizziness, 2-3 days. Amlodipine was discontinued due to pedal edema and Spironolactone-HCTZ was started 02/21 by her PCP, Dr Gurmeet Eldridge at [facility]. She denies fevers, chills, cough, chest pain, SOB, abdominal pain, or focal weakness. Having frequency but can't tell if it stokes. Recurrent UTIs per daughter, Susan. PMHx significant for Trigeminal Neuralgia on Carbamazepine and Baclofen, HTN, IBS with diarrhea. She sees Dr Wellington at [facility], last visit was 01/07/2020, last carbamazepine level was 11/2019 which was 10. Spoke [address] Dr Eldridge, has tendency to have hyponatremia, advised to stop the Spironolactone-HCTZ and will start Hydralazine 25 mg q6h and she is seeing him on March 06 for repeat labs and visit. Called and left message with Dr Wellington's office. Poison control had advised holding medication and rechecking levels this morning and 4 pm. Headache Pain Score (Numeric/FACES): 5 face Pain Score (Numeric/FACES): 4 - Related Data Allergies/Adverse Reactions: Allergies Allergy/AdvReac Type Severity Reaction Status Date / Time codeine Allergy Confusion Verified 02/24/20 22:27 erythromycin base Allergy Rash Verified 02/24/20 22:27 [Erythromycin Base] indomethacin Allergy Cannot Verified 02/24/20 22:27 Remember meperidine HCl [From Demerol] Allergy Hypotension Verified 02/24/20 22:27 niacin Allergy Rash Verified 02/24/20 22:27 prednisone Allergy Rash Verified 02/24/20 22:27 pregabalin Allergy Cannot Verified 02/24/20 22:27 Remember Sulfa (Sulfonamide Allergy Rash Verified 02/24/20 22:27 Antibiotics) tramadol Allergy Dizziness Verified 02/24/20 22:27 zoster vaccine live Allergy Swelling Verified 02/24/20 22:27 [From ZOSTAVAX (PF)] Home Medications: Home Meds Metoprolol Succinate 50 mg PO BEDTIME 05/13/19 [History] atorvaSTATin Calcium [Atorvastatin Calcium] 40 mg PO BEDTIME 05/13/19 [History] Losartan [Cozaar] 100 mg PO BEDTIME 10/03/19 [History] .Probiotic Advanced 1 dose PO DAILY 02/24/20 [History] .Vitamin D 2,000 units PO DAILY 02/24/20 [History] Aspirin 81 mg PO DAILY 02/24/20 [History] Baclofen 15 mg PO TID 02/24/20 [History] Estrogen,Con/M-Progest Acet [Prempro 0.3 MG-1.5 MG] 1 tab PO DAILY 02/24/20 [History] Spironolact/Hydrochlorothiazid [Spironolactone-HCTZ 25-25] 0.5 tab PO DAILY 02/24/20 [History] carBAMazepine [Carbamazepine ER] 400 mg PO TID 02/24/20 [History] Past Medical History HEENT History: Reports: Other (See Below) Other HEENT History: hx trigeminal neuragia Cardiovascular History: Reports: High Cholesterol, Hypertension, Other (See Below) Other Cardiovascular History: mitral valve regurgiation Gastrointestinal History: Reports: GERD Genitourinary History: Reports: UTI, Recurrent 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 - Infectious Disease History Infectious Disease History: Reports: Chicken Pox, Measles - Past Surgical History HEENT Surgical History: Reports: Cataract Surgery, Tonsillectomy GI Surgical History: Reports: Cholecystectomy, Colonoscopy, EGD Social & Family History - Family History Family Medical History: Noncontributory - Caffeine Use Caffeine Use: Reports: None Other Caffeine Use: decaf coffee; rarely drink soda and only drinks the small cans. - Living Situation & Occupation Living situation: Reports: Occupation: Retired H&P Review of Systems - Review of Systems: Review Of Systems: Comprehensive ROS is negative, except as noted in HPI. Exam - Exam Exam: See Below - Vital Signs Vital Signs: Last Vital Signs Temp 98.2 F 02/25/20 08:47 Pulse 59 L 02/25/20 16:59 Resp 16 02/25/20 16:59 BP 114/62 02/25/20 17:02 Pulse Ox 98 02/25/20 16:59 Weight: 162 lb 8 oz - Exam General: Alert, Oriented, Cooperative. No: Mild Distress HEENT: PERRLA, Conjunctiva Clear, EOMI, Hearing Intact, Mucosa Moist & [place], Normal Nasal Septum, Posterior Pharynx Clear, Other (No temporal artery tenderness, NT over bilateral cheeks, jaws.) Neck: Supple, Trachea Midline Lungs: Clear to Auscultation, Normal Respiratory Effort Cardiovascular: Regular Rate, Regular Rhythm GI/Abdominal Exam: Normal Bowel Sounds, Soft, Non-Tender, No Distention (Female) Exam: Deferred Rectal (Female) Exam: Deferred Back Exam: No: CVA Tenderness (R), CVA Tenderness (L) Extremities: No Pedal Edema Peripheral Pulses: 2+: Radial (L), Radial (R) Skin: Warm, Dry, Intact Neurological: Cranial Nerves Intact, Normal Speech - Patient Data Lab Results Last 24 hrs: Laboratory Results - last 24 hr 02/24/20 02/24/20 02/24/20 Range/Units 20:50 20:50 20:50 WBC 8.2 (4.5-12.0) X10-3/uL RBC 4.09 (3.23-5.20) x10(6)uL Hgb 13.5 (11.5-15.5) g/dL Hct 41.1 (30.0-51.3) % MCV 100.5 H (80-96) fL MCH 33.1 (27.7-33.6) pg MCHC 32.9 (32.2-35.4) g/dL RDW 12.2 (11.5-15.5) % Plt Count 193 (125-369) X10(3)uL MPV 6.6 L (7.4-10.4) fL Neut % (Auto) 83.2 H (46-82) % Lymph % (Auto) 9.5 L (13-37) % [place] % (Auto) 5.9 (4-12) % Eos % (Auto) 1 (1.0-5.0) % Baso % (Auto) 1 (0-2) % Neut # (Auto) 6.8 (1.6-8.3) # Lymph # (Auto) 0.8 (0.6-5.0) # [place] # (Auto) 0.5 (0.0-1.3) # Eos # (Auto) 0.0 (0.0-0.8) # Baso # (Auto) 0.1 (0.0-0.2) # Add Manual Diff Neutrophils % (Manual) (46-82) % Lymphocytes % (Manual) (13-37) % Monocytes % (Manual) (4-12) % PT 10.3 (9.0-11.1) sec INR 0.95 L (1.00-1.24) APTT 24.9 (24.4-33.2) SECONDS Sodium 126 L (135-145) mmol/L Potassium 3.8 (3.5-5.3) mmol/L Chloride 90 L (100-110) mmol/L Carbon Dioxide 25 (21-32) mmol/L BUN 12 (7-18) mg/dL Creatinine 0.6 (0.55-1.02) mg/dL Est Cr Clr Drug Dosing TNP Estimated GFR (MDRD) > 60 (>60) BUN/Creatinine Ratio 20.0 (9-20) Glucose 115 (80-116) mg/dL Calcium 8.7 (8.6-10.2) mg/dL Magnesium (1.8-2.5) mg/dL Total Bilirubin 0.6 (0.1-1.3) mg/dL AST 26 H (5-25) IU/L ALT 32 (12-36) U/L Alkaline Phosphatase 125 H (56-112) IU/L Troponin I (4.0-60.3) pg/mL Total Protein 6.9 (6.0-8.0) g/dL Albumin 4.3 (3.2-4.6) g/dL Globulin 2.6 g/dL Albumin/Globulin Ratio 1.7 Urine Color (YELLOW) Urine Appearance (CLEAR) Urine pH (5.0-6.5) Ur Specific [place] (1.010-1.025) Urine Protein (NEGATIVE) mg/dL Urine Glucose (UA) (NORMAL) mg/dL Urine Ketones (NEGATIVE) mg/dL Urine Occult Blood (NEGATIVE) Urine Nitrite (NEGATIVE) Urine Bilirubin (NEGATIVE) Urine Urobilinogen (NEGATIVE) mg/dL Ur Leukocyte Esterase (NEGATIVE) Urine RBC (0-5) Urine WBC (0-5) Ur Squamous Epith Cells (NS,R,O) Urine Bacteria (NS) Carbamazepine (<0.5) ug/mL SARS Virus RNA (PCR) (NEGATIVE) 02/24/20 02/24/20 02/24/20 Range/Units 20:50 20:50 20:50 WBC (4.5-12.0) X10-3/uL RBC (3.23-5.20) x10(6)uL Hgb (11.5-15.5) g/dL Hct (30.0-51.3) % MCV (80-96) fL MCH (27.7-33.6) pg MCHC (32.2-35.4) g/dL RDW (11.5-15.5) % Plt Count (125-369) X10(3)uL MPV (7.4-10.4) fL Neut % (Auto) (46-82) % Lymph % (Auto) (13-37) % [place] % (Auto) (4-12) % Eos % (Auto) (1.0-5.0) % Baso % (Auto) (0-2) % Neut # (Auto) (1.6-8.3) # Lymph # (Auto) (0.6-5.0) # [place] # (Auto) (0.0-1.3) # Eos # (Auto) (0.0-0.8) # Baso # (Auto) (0.0-0.2) # Add Manual Diff Neutrophils % (Manual) (46-82) % Lymphocytes % (Manual) (13-37) % Monocytes % (Manual) (4-12) % PT (9.0-11.1) sec INR (1.00-1.24) APTT (24.4-33.2) SECONDS Sodium (135-145) mmol/L Potassium (3.5-5.3) mmol/L Chloride (100-110) mmol/L Carbon Dioxide (21-32) mmol/L BUN (7-18) mg/dL Creatinine (0.55-1.02) mg/dL Est Cr Clr Drug Dosing Estimated GFR (MDRD) (>60) BUN/Creatinine Ratio (9-20) Glucose (80-116) mg/dL Calcium (8.6-10.2) mg/dL Magnesium 1.8 (1.8-2.5) mg/dL Total Bilirubin (0.1-1.3) mg/dL AST (5-25) IU/L ALT (12-36) U/L Alkaline Phosphatase (56-112) IU/L Troponin I 7.0 (4.0-60.3) pg/mL Total Protein (6.0-8.0) g/dL Albumin (3.2-4.6) g/dL Globulin g/dL Albumin/Globulin Ratio Urine Color (YELLOW) Urine Appearance (CLEAR) Urine pH (5.0-6.5) Ur Specific [place] (1.010-1.025) Urine Protein (NEGATIVE) mg/dL Urine Glucose (UA) (NORMAL) mg/dL Urine Ketones (NEGATIVE) mg/dL Urine Occult Blood (NEGATIVE) Urine Nitrite (NEGATIVE) Urine Bilirubin (NEGATIVE) Urine Urobilinogen (NEGATIVE) mg/dL Ur Leukocyte Esterase (NEGATIVE) Urine RBC (0-5) Urine WBC (0-5) Ur Squamous Epith Cells (NS,R,O) Urine Bacteria (NS) Carbamazepine 13.7 H (<0.5) ug/mL SARS Virus RNA (PCR) (NEGATIVE) 02/24/20 02/25/20 02/25/20 Range/Units 21:30 03:25 06:40 WBC 8.7 (4.5-12.0) X10-3/uL RBC 4.13 (3.23-5.20) x10(6)uL Hgb 13.3 (11.5-15.5) g/dL Hct 41.6 (30.0-51.3) % MCV 100.7 H (80-96) fL MCH 32.3 (27.7-33.6) pg MCHC 32.1 L (32.2-35.4) g/dL RDW 12.2 (11.5-15.5) % Plt Count 220 (125-369) X10(3)uL MPV 6.9 L (7.4-10.4) fL Neut % (Auto) (46-82) % Lymph % (Auto) (13-37) % [place] % (Auto) (4-12) % Eos % (Auto) (1.0-5.0) % Baso % (Auto) (0-2) % Neut # (Auto) (1.6-8.3) # Lymph # (Auto) (0.6-5.0) # [place] # (Auto) (0.0-1.3) # Eos # (Auto) (0.0-0.8) # Baso # (Auto) (0.0-0.2) # Add Manual Diff Yes Neutrophils % (Manual) 91 H (46-82) % Lymphocytes % (Manual) 6 L (13-37) % Monocytes % (Manual) 3 L (4-12) % PT (9.0-11.1) sec INR (1.00-1.24) APTT (24.4-33.2) SECONDS Sodium (135-145) mmol/L Potassium (3.5-5.3) mmol/L Chloride (100-110) mmol/L Carbon Dioxide (21-32) mmol/L BUN (7-18) mg/dL Creatinine (0.55-1.02) mg/dL Est Cr Clr Drug Dosing Estimated GFR (MDRD) (>60) BUN/Creatinine Ratio (9-20) Glucose (80-116) mg/dL Calcium (8.6-10.2) mg/dL Magnesium (1.8-2.5) mg/dL Total Bilirubin (0.1-1.3) mg/dL AST (5-25) IU/L ALT (12-36) U/L Alkaline Phosphatase (56-112) IU/L Troponin I (4.0-60.3) pg/mL Total Protein (6.0-8.0) g/dL Albumin (3.2-4.6) g/dL Globulin g/dL Albumin/Globulin Ratio Urine Color Yellow (YELLOW) Urine Appearance Slightly cloudy (CLEAR) Urine pH 7.0 H (5.0-6.5) Ur Specific [place] 1.015 (1.010-1.025) Urine Protein Negative (NEGATIVE) mg/dL Urine Glucose (UA) Normal (NORMAL) mg/dL Urine Ketones 50 H (NEGATIVE) mg/dL Urine Occult Blood Trace (NEGATIVE) Urine Nitrite Negative (NEGATIVE) Urine Bilirubin Negative (NEGATIVE) Urine Urobilinogen Normal (NEGATIVE) mg/dL Ur Leukocyte Esterase Moderate H (NEGATIVE) Urine RBC 0-5 (0-5) Urine WBC 5-10 H (0-5) Ur Squamous Epith Cells Few H (NS,R,O) Urine Bacteria Few H (NS) Carbamazepine (<0.5) ug/mL SARS Virus RNA (PCR) Negative (NEGATIVE) 02/25/20 02/25/20 Range/Units 06:40 16:00 WBC (4.5-12.0) X10-3/uL RBC (3.23-5.20) x10(6)uL Hgb (11.5-15.5) g/dL Hct (30.0-51.3) % MCV (80-96) fL MCH (27.7-33.6) pg MCHC (32.2-35.4) g/dL RDW (11.5-15.5) % Plt Count (125-369) X10(3)uL MPV (7.4-10.4) fL Neut % (Auto) (46-82) % Lymph % (Auto) (13-37) % [place] % (Auto) (4-12) % Eos % (Auto) (1.0-5.0) % Baso % (Auto) (0-2) % Neut # (Auto) (1.6-8.3) # Lymph # (Auto) (0.6-5.0) # [place] # (Auto) (0.0-1.3) # Eos # (Auto) (0.0-0.8) # Baso # (Auto) (0.0-0.2) # Add Manual Diff Neutrophils % (Manual) (46-82) % Lymphocytes % (Manual) (13-37) % Monocytes % (Manual) (4-12) % PT (9.0-11.1) sec INR (1.00-1.24) APTT (24.4-33.2) SECONDS Sodium 125 L 126 L (135-145) mmol/L Potassium 3.7 3.7 (3.5-5.3) mmol/L Chloride 91 L 94 L (100-110) mmol/L Carbon Dioxide 25 25 (21-32) mmol/L BUN 10 10 (7-18) mg/dL Creatinine 0.6 0.6 (0.55-1.02) mg/dL Est Cr Clr Drug Dosing 66.05 66.05 Estimated GFR (MDRD) > 60 > 60 (>60) BUN/Creatinine Ratio 16.7 16.7 (9-20) Glucose 143 H 122 H (80-116) mg/dL Calcium 8.3 L 7.9 L (8.6-10.2) mg/dL Magnesium (1.8-2.5) mg/dL Total Bilirubin 0.6 (0.1-1.3) mg/dL AST 21 D (5-25) IU/L ALT 27 D (12-36) U/L Alkaline Phosphatase 96 (56-112) IU/L Troponin I (4.0-60.3) pg/mL Total Protein 5.9 L (6.0-8.0) g/dL Albumin 3.4 (3.2-4.6) g/dL Globulin 2.5 g/dL Albumin/Globulin Ratio 1.4 Urine Color (YELLOW) Urine Appearance (CLEAR) Urine pH (5.0-6.5) Ur Specific [place] (1.010-1.025) Urine Protein (NEGATIVE) mg/dL Urine Glucose (UA) (NORMAL) mg/dL Urine Ketones (NEGATIVE) mg/dL Urine Occult Blood (NEGATIVE) Urine Nitrite (NEGATIVE) Urine Bilirubin (NEGATIVE) Urine Urobilinogen (NEGATIVE) mg/dL Ur Leukocyte Esterase (NEGATIVE) Urine RBC (0-5) Urine WBC (0-5) Ur Squamous Epith Cells (NS,R,O) Urine Bacteria (NS) Carbamazepine 8.6 5.9 (<0.5) ug/mL SARS Virus RNA (PCR) (NEGATIVE) Result Diagrams: 02/25/20 06:40 02/25/20 16:00 Mehran Results Last 24 hrs: Microbiology 02/24/20 21:30 Urine Culture - Preliminary Urine, Clean Catch MIXED POSITIVE YESIKA DAY 1 Sepsis Event Note - Evaluation Sepsis Screening Result: No Definite Risk - Focused Exam Vital Signs: Vital Signs Temp Pulse Resp BP BP Pulse Ox 02/25/20 17:02 114/62 02/25/20 16:59 59 L 16 115/82 98 02/25/20 08:47 98.2 F 65 18 142/74 H 98 Date Exam was Performed: 06/22/20 Time Exam was Performed: 19:07 - Problem List (1) UTI (urinary tract infection) SNOMED Code(s): 86778914 ICD Code: N39.0 - URINARY TRACT INFECTION, SITE NOT SPECIFIED Status: Acute Current Visit: No Qualifiers: Urinary tract infection type: acute cystitis Hematuria presence: without hematuria Qualified Code(s): N30.00 - Acute cystitis without hematuria (2) Hyponatremia SNOMED Code(s): 36741991 ICD Code: E87.1 - HYPO-OSMOLALITY AND HYPONATREMIA Status: Acute Current Visit: No (3) Hypertensive urgency SNOMED Code(s): 159496061 ICD Code: I16.0 - HYPERTENSIVE URGENCY Status: Acute Current Visit: No (4) Lightheadedness SNOMED Code(s): 426478459 ICD Code: R42 - DIZZINESS AND GIDDINESS Status: Acute Current Visit: No (5) Tegretol toxicity SNOMED Code(s): 286620544 ICD Code: T42.1X1A - POISONING BY IMINOSTILBENES, ACCIDENTAL, INIT Status: Acute Current Visit: No Qualifiers: Encounter type: initial encounter Injury intent: accidental or unintentional Qualified Code(s): T42.1X1A - Poisoning by iminostilbenes, accidental (unintentional), initial encounter (6) Trigeminal neuralgia SNOMED Code(s): 07980848 ICD Code: G50.0 - TRIGEMINAL NEURALGIA Status: Chronic Current Visit: Yes Problem Details: On Carbamazapine with Baclofen (7) Gastroesophageal reflux disease SNOMED Code(s): 847424707 ICD Code: K21.9 - GASTRO-ESOPHAGEAL REFLUX DISEASE WITHOUT ESOPHAGITIS S tatus: Chronic Current Visit: No (8) Hypertension SNOMED Code(s): 13095141 ICD Code: I10 - ESSENTIAL (PRIMARY) HYPERTENSION Status: Chronic Current Visit: Yes (9) IBS (irritable bowel syndrome) SNOMED Code(s): 11863776 ICD Code: K58.9 - IRRITABLE BOWEL SYNDROME WITHOUT DIARRHEA Status: Chronic Current Visit: Yes Problem List Initiated/Reviewed/Updated: Yes Orders Last 24hrs: Active Orders 24 hr Category Date Time Status Patient Status [ADT] Routine ADT 02/25/20 15:23 Active Ambulate [RC] ASDIRECTED Care 02/24/20 22:35 Active Cardiac Monitoring [RC] CONTINUOUS Care 02/24/20 22:38 Active EKG Documentation Completion [RC] ASDIRECTED Care 02/24/20 20:39 Active Height and Weight [RC] 06 Care 02/24/20 22:35 Active Intake and Output [RC] ,, Care 02/24/20 22:38 Active Notify Provider Consults [RC] ASDIRECTED Care 02/25/20 08:36 Active Notify Provider Vital Signs [RC] ASDIRECTED Care 02/24/20 22:38 Active Oxygen Therapy [RC] PRN Care 02/24/20 22:36 Active Pulse Oximetry [RC] PRN Care 02/24/20 22:38 Active Up With Assistance [RC] ASDIRECTED Care 02/24/20 22:35 Active VTE/DVT Education [RC] Per Unit Routine Care 02/24/20 22:36 Active Vital Signs [RC] 08,16,00 Care 02/24/20 22:36 Active Fluid Restriction [DIET] Diet 02/25/20 Breakfast Active Heart Healthy Diet [DIET] Diet 02/25/20 Breakfast Active Head wo Cont [CT] Stat Exams 02/24/20 21:29 Taken BASIC METABOLIC PANEL,BMP [CHEM] Routine Lab 02/26/20 05:00 Ordered CBC WITH AUTO DIFF [HEME] Routine Lab 02/26/20 05:00 Ordered CULTURE URINE [RM] Stat Lab 02/24/20 21:30 Results Acetaminophen [Tylenol] Med 02/24/20 23:38 Active 650 mg PO Q4H PRN Aspirin Med 02/25/20 09:00 Active 81 mg PO DAILY Baclofen [Lioresal] Med 02/24/20 22:51 Active 15 mg PO TID Ciprofloxacin in D5W [Cipro in D5W 200 MG/100 ML] 100 Med 02/25/20 12:30 Active ml IV Q12H HYDROmorphone [Dilaudid] Med 02/25/20 00:50 Active 0.5 mg IVPUSH Q4H PRN Losartan [Cozaar] Med 02/25/20 21:00 Active 100 mg PO BEDTIME Metoclopramide [Reglan] Med 02/25/20 11:31 Active 5 mg IVPUSH Q6H PRN Metoprolol Succinate [Toprol XL] Med 02/25/20 21:00 Active 50 mg PO BEDTIME Ondansetron [Zofran] Med 02/24/20 22:35 Active 4 mg IV Q6H PRN Sodium Chloride 0.9% [Normal Saline] 1,000 ml Med 02/24/20 22:15 Active IV ASDIRECTED Sodium Chloride 0.9% [Saline Flush] Med 02/24/20 20:38 Active 10 ml FLUSH ASDIRECTED PRN atorvaSTATin [Lipitor] Med 02/25/20 21:00 Hold 40 mg PO BEDTIME carBAMazepine [TEGretol XR] Med 02/25/20 21:00 Active 400 mg PO TID hydrALAZINE [Apresoline] Med 02/25/20 16:00 Active 25 mg PO Q6H hydrALAZINE [Apresoline] Med 02/24/20 22:43 Active 5 mg IVPUSH ONETIME PRN Saline Lock Insert [OM.PC] Routine Oth 02/24/20 20:38 Ordered Code Status [Resuscitation Status] Routine Resus Stat 02/25/20 19:05 Ordered EKG 12 Lead [EK] Stat Ther 02/24/20 20:39 Ordered Medication Orders Acetaminophen (Tylenol) 650 mg PO Q4H PRN PRN Reason: Headache Aspirin (Aspirin) 81 mg PO DAILY [facility] Last Admin: 02/25/20 12:46 Dose: Not Given Documented by: DALTON Atorvastatin Calcium (Lipitor) 40 mg PO BEDTIME [facility] Baclofen (Lioresal) 15 mg PO TID [facility] Last Admin: 02/25/20 14:41 Dose: Not Given Documented by: Admin: 02/25/20 12:46 Dose: Not Given Documented by: Admin: 02/25/20 00:34 Dose: Not Given Documented by: LAN Carbamazepine (Tegretol Xr) 400 mg PO TID [facility] Hydralazine HCl (Apresoline) 5 mg IVPUSH ONETIME PRN PRN Reason: Hypertension Hydralazine HCl (Apresoline) 25 mg PO Q6H [facility] Last Admin: 02/25/20 17:02 Dose: 25 mg Documented by: DALTON Hydromorphone HCl (Dilaudid) 0.5 mg IVPUSH Q4H PRN PRN Reason: Pain Last Admin: 02/25/20 14:45 Dose: 0.5 mg Documented by: Admin: 02/25/20 01:15 Dose: 0.5 mg Documented by: LAN Sodium Chloride (Normal Saline) 1,000 mls @ 100 mls/hr IV ASDIRECTED [facility] Last Admin: 02/25/20 18:50 Dose: 100 mls/hr Documented by: Infusion: 02/25/20 17:37 Dose: 100 mls/hr Documented by: Admin: 02/25/20 07:37 Dose: 100 mls/hr Documented by: Infusion: 02/25/20 07:37 Dose: 100 mls/hr Documented by: Admin: 02/24/20 22:00 Dose: 100 mls/hr Documented by: TATY Ciprofloxacin/Dextrose (Cipro In D5w 200 Mg/100 Ml) 100 mls @ 100 mls/hr IV Q12H [facility] Last Admin: 02/25/20 12:57 Dose: 100 mls/hr Documented by: DALTON Losartan Potassium (Cozaar) 100 mg PO BEDTIME JONY Metoclopramide HCl (Reglan) 5 mg IVPUSH Q6H PRN PRN Reason: Nausea/Vomiting Metoprolol Succinate (Toprol Xl) 50 mg PO BEDTIME JONY Ondansetron HCl (Zofran) 4 mg IV Q6H PRN PRN Reason: Nausea/Vomiting Last Admin: 02/25/20 03:20 Dose: 4 mg Documented by: LAN Sodium Chloride (Saline Flush) 10 ml FLUSH ASDIRECTED PRN PRN Reason: Keep Vein Open Last Admin: 02/25/20 08:57 Dose: 10 ml Documented by: DALTON Assessment/Plan Comment:: 1. Admit for Hyponatremia, Supratherapeutic Carbamazepine, Hypertensive urgency. 2. NS at 100 ml/hr, recheck labs in am. 3. Ciprofloxacin 200 mg IV q12h, UC see above. 4. Hydralazine 25 mg po q6h, stop spironolactone-HCTZ. 5. Will call Dr Wellington office again tomorrow, restarted Carbamazepine tonight as level is down to 5. 6. Susan, stated she gets recurrent UTIs, had ciprofloxacin in Sep, was told by urology a few years ago that she had chronic UTIs. 7. FULL CODE. will adjust treatments as needed, anticipate her stay >48 hours as her sodium slowly is corrected, changed to inpatient status as of this morning. - Mortality Measure Prognosis:: Good
[2020-02-25] MEDS: Losartan 100 MG Tab PO SCH (21:30)
[2020-02-25] MEDS: Metoprolol Succinate 50 MG Tab.ER PO SCH (21:30)
[2020-02-25] MEDS: Baclofen 10 MG Tab PO SCH (22:39)
[2020-02-25] MEDS: carBAMazepine 200 MG Cap.ER PO SCH (22:40)
[2020-02-26] MEDS: Ciprofloxacin in D5W 100 ML IV SCH (00:39)
[2020-02-26] MEDS: hydrALAZINE 25 MG Tab PO SCH ×4 (04:28→21:31)
[2020-02-26] MEDS: Sodium Chloride 0.9% 1,000 ML IV SCH ×2 (05:59→16:21)
[2020-02-26] MEDS: HYDROmorphone 2 MG/ML SDV IVPUSH PRN ×3 (06:16→21:17)
[2020-02-26] MEDS: Ondansetron 4 MG/2 ML SDV IV PRN ×2 (09:25→15:25)
[2020-02-26] MEDS: Aspirin 81 MG Tab.Chew PO SCH (09:45)
[2020-02-26] MEDS: Baclofen 10 MG Tab PO SCH ×3 (09:45→21:27)
[2020-02-26] MEDS: carBAMazepine 200 MG Cap.ER PO SCH (09:46)
[2020-02-26] MEDS: Metoclopramide 10 MG/2 ML SDV IVPUSH PRN ×2 (11:32→21:17)
[2020-02-26] MEDS ORDERED: carBAMazepine 200 MG Cap.ER PO SCH (15:00)
[2020-02-26] MEDS: Acetaminophen/HYDROcodone 325-5 MG Tab PO PRN (16:40)
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
[2020-02-26] MEDS: Losartan 100 MG Tab PO SCH (21:28)
[2020-02-26] MEDS: Metoprolol Succinate 50 MG Tab.ER PO SCH (21:31)
[2020-02-26] MEDS ORDERED: atorvaSTATin 40 MG Tab PO SCH (22:52)
[2020-02-26] MEDS: carBAMazepine 200 MG TAB.ER PO SCH (23:01)
[2020-02-27] MEDS: Sodium Chloride 0.9% 1,000 ML IV SCH (02:17)
[2020-02-27] MEDS: HYDROmorphone 2 MG/ML SDV IVPUSH PRN ×2 (02:25→07:06)
[2020-02-27] MEDS: hydrALAZINE 25 MG Tab PO SCH ×4 (04:12→22:13)
[2020-02-27] MEDS: carBAMazepine 200 MG TAB.ER PO SCH ×3 (06:32→22:13)
[2020-02-27] MEDS: Potassium Chloride 20 MEQ Tab.ER PO SCH ×2 (09:42→20:01)
[2020-02-27] MEDS: Baclofen 10 MG Tab PO SCH ×3 (09:42→20:02)
[2020-02-27] MEDS: Aspirin 81 MG Tab.Chew PO SCH (09:42)
--- NOTE | 2020-02-27 15:51 | PCM.PN ---
- General Info Date of Service: 02/27/20 Admission Dx/Problem (Free Text): Abena's sodium corrected this morning blood pressures 168 overnight. She is complaining of blurry vision with headache, has used Dilaudid mostly for her Trigeminal neuralgia instead of Vicodin. Dilaudid does have side effect of blurred vision and can cause worse headaches so was discontinued. Tolerating clear liquids with pills. Slowly advance diet. - Patient Data Vitals - Most Recent: Last Vital Signs Temp 97 F 02/27/20 14:35 Pulse 77 02/27/20 14:35 Resp 18 02/27/20 14:35 BP 164/90 H 02/27/20 14:35 Pulse Ox 95 02/27/20 14:35 Weight - Most Recent: 162 lb I&O - Last 24 Hours: Intake & Output 02/27/20 02/27/20 02/27/20 06:59 14:59 22:59 Intake Total 846 Output Total 1250 250 Balance -404 -250 Lab Results Last 24 Hours: Laboratory Results - last 24 hr 02/27/20 Range/Units 06:20 Sodium 136 (135-145) mmol/L Potassium 3.2 L (3.5-5.3) mmol/L Chloride 102 D (100-110) mmol/L Carbon Dioxide 26 (21-32) mmol/L BUN 8 (7-18) mg/dL Creatinine 0.6 (0.55-1.02) mg/dL Est Cr Clr Drug Dosing 66.05 mL/min Estimated GFR (MDRD) > 60 (>60) BUN/Creatinine Ratio 13.3 (9-20) Glucose 101 (80-116) mg/dL Calcium 8.0 L (8.6-10.2) mg/dL Mehran Results Last 24 Hours: Microbiology 02/24/20 21:30 Urine Culture - Final Urine, Clean Catch MIXED POSITIVE YESIK[facility] DAY 2 Med Orders - Current: Current Medications Acetaminophen (Tylenol) 650 mg PO Q4H PRN PRN Reason: Headache Hydrocodone Bitart/Acetaminophen (Stringer 325-5 Mg) 1 tab PO Q4H PRN PRN Reason: Pain Last Admin: 02/26/20 16:40 Dose: 1 tab Documented by: Aspirin (Aspirin) 81 mg PO DAILY [facility] Last Admin: 02/27/20 09:42 Dose: 81 mg Documented by: Atorvastatin Calcium (Lipitor) 40 mg PO BEDTIME [facility] Baclofen (Lioresal) 15 mg PO TID [facility] Last Admin: 02/27/20 14:36 Dose: 15 mg Documented by: Carbamazepine (Tegretol Er) 400 mg PO 0700,1500,2300 [facility] Last Admin: 02/27/20 14:36 Dose: 400 mg Documented by: Hydralazine HCl (Apresoline) 5 mg IVPUSH ONETIME PRN PRN Reason: Hypertension Hydralazine HCl (Apresoline) 25 mg PO Q6H [facility] Last Admin: 02/27/20 09:43 Dose: 25 mg Documented by: Losartan Potassium (Cozaar) 100 mg PO BEDTIME [facility] Last Admin: 02/26/20 21:28 Dose: 100 mg Documented by: Metoclopramide HCl (Reglan) 5 mg IVPUSH Q6H PRN PRN Reason: Nausea/Vomiting Last Admin: 02/26/20 21:17 Dose: 5 mg Documented by: Metoprolol Succinate (Toprol Xl) 50 mg PO BEDTIME [facility] Last Admin: 02/26/20 21:31 Dose: 50 mg Documented by: Ondansetron HCl (Zofran) 4 mg IV Q6H PRN PRN Reason: Nausea/Vomiting Last Admin: 02/26/20 15:25 Dose: 4 mg Documented by: Potassium Chloride (Klor-Con M20) 20 meq PO BID [facility] Stop: 02/28/20 09:01 Last Admin: 02/27/20 09:42 Dose: 20 meq Documented by: Sodium Chloride (Saline Flush) 10 ml FLUSH ASDIRECTED PRN PRN Reason: Keep Vein Open Last Admin: 02/25/20 08:57 Dose: 10 ml Documented by: Discontinued Medications Atorvastatin Calcium (Lipitor) 40 mg PO ONETIME ONE Stop: 02/25/20 00:01 Last Admin: 02/25/20 00:07 Dose: 40 mg Documented by: Baclofen (Lioresal) 15 mg PO TID [facility] Last Admin: 02/25/20 23:15 Dose: Not Given Documented by: Baclofen (Lioresal) 15 mg PO ONETIME ONE Stop: 02/25/20 00:01 Last Admin: 02/25/20 00:04 Dose: Not Given Documented by: Carbamazepine (Tegretol Xr) 400 mg PO TID [facility] Last Admin: 02/26/20 09:46 Dose: 400 mg Documented by: Carbamazepine (Tegretol Xr) 400 mg PO 0700,1500,2300 [facility] Last Admin: 02/26/20 14:41 Dose: 400 mg Documented by: Cefuroxime Axetil (Ceftin) 250 mg PO BID [facility] Last Admin: 02/25/20 12:47 Dose: Not Given Documented by: Hydralazine HCl (Apresoline) 10 mg IVPUSH ONETIME ONE Stop: 02/24/20 20:42 Last Admin: 02/24/20 21:08 Dose: 10 mg Documented by: Hydromorphone HCl (Dilaudid) 0.5 mg IVPUSH Q4H PRN PRN Reason: Pain Last Admin: 02/27/20 07:06 Dose: 0.5 mg Documented by: Sodium Chloride (Normal Saline) 500 mls @ 500 mls/hr IV .BOLUS ONE Stop: 02/24/20 21:39 Last Admin: 02/24/20 21:04 Dose: 500 mls/hr Documented by: Sodium Chloride (Normal Saline) 1,000 mls @ 100 mls/hr IV ASDIRECTED [facility] Last Admin: 02/27/20 02:17 Dose: 100 mls/hr Documented by: Ciprofloxacin/Dextrose (Cipro In D5w 200 Mg/100 Ml) 100 mls @ 100 mls/hr IV Q12H [facility] Last Admin: 02/26/20 00:39 Dose: 100 mls/hr Documented by: Losartan Potassium (Cozaar) 50 mg PO DAILY [facility] Losartan Potassium (Cozaar) 100 mg PO ONETIME ONE Stop: 02/25/20 00:01 Last Admin: 02/25/20 00:05 Dose: 100 mg Documented by: Losartan Potassium (Cozaar) Confirm Administered Dose 100 mg .ROUTE .STK-MED ONE Stop: 02/24/20 23:50 Last Admin: 02/25/20 00:04 Dose: Not Given Documented by: Metoclopramide HCl (Reglan) 5 mg IVPUSH ONETIME ONE Stop: 02/25/20 08:45 Last Admin: 02/25/20 08:57 Dose: 5 mg Documented by: Metoprolol Succinate (Toprol Xl) 50 mg PO ONETIME ONE Stop: 02/25/20 00:01 Last Admin: 02/25/20 00:05 Dose: 50 mg Documented by: Ondansetron HCl (Zofran) 4 mg IVPUSH ONETIME ONE Stop: 02/24/20 21:58 Last Admin: 02/24/20 22:10 Dose: 4 mg Documented by: - Exam General: Alert, Oriented, No Acute Distress Neck: Supple (TTP paraspinal mm.), Trachea Midline Lungs: Clear to Auscultation, Normal Respiratory Effort Cardiovascular: Regular Rate, Regular Rhythm GI/Abdominal Exam: Normal Bowel Sounds, Soft, Non-Tender, No Distention Extremities: No Pedal Edema Peripheral Pulses: 2+: Radial (L), Radial (R) Sepsis Event Note - Evaluation Sepsis Screening Result: No Definite Risk - Focused Exam Vital Signs: Vital Signs Temp Pulse Resp BP BP Pulse Ox 02/27/20 14:35 97 F 77 18 164/90 H 95 02/27/20 09:43 179/97 H 02/27/20 04:12 168/78 H Date Exam was Performed: 02/27/20 Time Exam was Performed: 15:46 - Problem List & Annotations (1) Hypokalemia SNOMED Code(s): 54347193 Code(s): E87.6 - HYPOKALEMIA Status: Acute Current Visit: Yes (2) Hypertensive urgency SNOMED Code(s): 616261749 Code(s): I16.0 - HYPERTENSIVE URGENCY Status: Acute Current Visit: No Annotation/Comment:: BP 150s with adding Hydrazaline. (3) Trigeminal neuralgia SNOMED Code(s): 90808842 Code(s): G50.0 - TRIGEMINAL NEURALGIA Status: Chronic Current Visit: Yes Annotation/Comment:: On Carbamazapine with Baclofen (4) Gastroesophageal reflux disease SNOMED Code(s): 309315961 Code(s): K21.9 - GASTRO-ESOPHAGEAL REFLUX DISEASE WITHOUT ESOPHAGITIS Status: Chronic Current Visit: No (5) Hypertension SNOMED Code(s): 28797760 Code(s): I10 - ESSENTIAL (PRIMARY) HYPERTENSION Status: Chronic Current Visit: Yes (6) IBS (irritable bowel syndrome) SNOMED Code(s): 89388055 Code(s): K58.9 - IRRITABLE BOWEL SYNDROME WITHOUT DIARRHEA Status: Chronic Current Visit: Yes (7) UTI (urinary tract infection) SNOMED Code(s): 16653565 Code(s): N39.0 - URINARY TRACT INFECTION, SITE NOT SPECIFIED Status: Ruled- out Current Visit: No Qualifiers: Urinary tract infection type: acute cystitis Hematuria presence: without hematuria Qualified Code(s): N30.00 - Acute cystitis without hematuria (8) Tegretol toxicity SNOMED Code(s): 977048635 Code(s): T42.1X1A - POISONING BY IMINOSTILBENES, ACCIDENTAL, INIT Status: Resolved Current Visit: No Qualifiers: Encounter type: initial encounter Injury intent: accidental or unintentional Qualified Code(s): T42.1X1A - Poisoning by iminostilbenes, accidental (unintentional), initial encounter (9) Lightheadedness SNOMED Code(s): 392221696 Code(s): R42 - DIZZINESS AND GIDDINESS Status: Resolved Current Visit: No (10) Hyponatremia SNOMED Code(s): 78582601 Code(s): E87.1 - HYPO-OSMOLALITY AND HYPONATREMIA Status: Resolved Current Visit: No Annotation/Comment:: Improving to 128. - Problem List Review Problem List Initiated/Reviewed/Updated: Yes - My Orders Last 24 Hours: My Active Orders 02/26/20 15:15 Acetaminophen/HYDROcodone [Stringer 325-5 MG] 1 tab PO Q4H PRN 02/26/20 23:00 carBAMazepine [TEGretol ER] 400 mg PO 0700,1500,2300 02/27/20 09:00 Potassium Chloride [Klor-Con M20] 20 meq PO BID 02/28/20 05:00 BASIC METABOLIC PANEL,BMP [CHEM] Routine - Plan Plan:: 1. Saline lock, potassium supplement, recheck labs in am. 2. Hydralazine 25 mg po q6h, titrate as needed. 3. Advance diet as tolerated. 4. Restarted Carbamazepine last night with Baclofen. Discontinued Dilaudid, may use Vicodin for headache, warm pack to neck.
[2020-02-27] MEDS: Acetaminophen/HYDROcodone 325-5 MG Tab PO PRN ×2 (16:38→20:32)
[2020-02-27] MEDS: Losartan 100 MG Tab PO SCH (20:01)
[2020-02-27] MEDS: atorvaSTATin 40 MG Tab PO SCH (20:02)
[2020-02-27] MEDS: Metoprolol Succinate 50 MG Tab.ER PO SCH (20:02)
[2020-02-28] MEDS: Acetaminophen/HYDROcodone 325-5 MG Tab PO PRN ×2 (00:42→08:23)
[2020-02-28] MEDS: hydrALAZINE 25 MG Tab PO SCH ×4 (04:30→22:04)
[2020-02-28] MEDS: carBAMazepine 200 MG TAB.ER PO SCH ×3 (06:10→22:10)
[2020-02-28] MEDS: Aspirin 81 MG Tab.Chew PO SCH (09:46)
[2020-02-28] MEDS: Potassium Chloride 20 MEQ Tab.ER PO SCH (09:46)
[2020-02-28] MEDS: Baclofen 10 MG Tab PO SCH ×3 (09:47→22:08)
--- NOTE | 2020-02-28 16:33 | PCM.PN ---
- General Info Date of Service: 02/28/20 Admission Dx/Problem (Free Text): Abena is doing much better today, labs have corrected. Appetite is not good, ate about 25-50% this morning. Trigeminal neuralgia was really bothering her this morning. No emesis overnight or this morning. States warm pack does help with the pain. She lives alone with her children all living out of state. Would like her eating better before she goes home. No further diarrhea. No fevers or chills. Functional Status: Reports: Tolerating Diet, Ambulating, Urinating - Patient Data Vitals - Most Recent: Last Vital Signs Temp 98 F 02/28/20 08:00 Pulse 60 02/28/20 08:00 Resp 18 02/28/20 08:00 BP 163/88 H 02/28/20 15:31 Pulse Ox 97 02/28/20 08:00 Weight - Most Recent: 159 lb 1 oz I&O - Last 24 Hours: Intake & Output 02/28/20 02/28/20 02/28/20 06:59 14:59 22:59 Intake Total 300 400 Output Total 1400 300 Balance -1100 100 Lab Results Last 24 Hours: Laboratory Results - last 24 hr 02/28/20 Range/Units 06:05 Sodium 138 (135-145) mmol/L Potassium 3.5 (3.5-5.3) mmol/L Chloride 102 (100-110) mmol/L Carbon Dioxide 31 (21-32) mmol/L BUN 8 (7-18) mg/dL Creatinine 0.6 (0.55-1.02) mg/dL Est Cr Clr Drug Dosing 66.05 mL/min Estimated GFR (MDRD) > 60 (>60) BUN/Creatinine Ratio 13.3 (9-20) Glucose 105 (80-116) mg/dL Calcium 8.4 L (8.6-10.2) mg/dL Med Orders - Current: Current Medications Acetaminophen (Tylenol) 650 mg PO Q4H PRN PRN Reason: Headache Hydrocodone Bitart/Acetaminophen ([place] 325-5 Mg) 1 tab PO Q4H PRN PRN Reason: Pain Last Admin: 02/28/20 08:23 Dose: 1 tab Documented by: Aspirin (Aspirin) 81 mg PO DAILY JONY Last Admin: 02/28/20 09:46 Dose: 81 mg Documented by: Atorvastatin Calcium (Lipitor) 40 mg PO BEDTIME [facility] Last Admin: 02/27/20 20:02 Dose: 40 mg Documented by: Baclofen (Lioresal) 15 mg PO TID [facility] Last Admin: 02/28/20 15:31 Dose: 15 mg Documented by: Carbamazepine (Tegretol Er) 400 mg PO 0700,1500,2300 [facility] Last Admin: 02/28/20 15:31 Dose: 400 mg Documented by: Hydralazine HCl (Apresoline) 5 mg IVPUSH ONETIME PRN PRN Reason: Hypertension Hydralazine HCl (Apresoline) 25 mg PO Q6H [facility] Last Admin: 02/28/20 15:31 Dose: 25 mg Documented by: Losartan Potassium (Cozaar) 100 mg PO BEDTIME [facility] Last Admin: 02/27/20 20:01 Dose: 100 mg Documented by: Metoclopramide HCl (Reglan) 5 mg IVPUSH Q6H PRN PRN Reason: Nausea/Vomiting Last Admin: 02/26/20 21:17 Dose: 5 mg Documented by: Metoprolol Succinate (Toprol Xl) 50 mg PO BEDTIME [facility] Last Admin: 02/27/20 20:02 Dose: 50 mg Documented by: Ondansetron HCl (Zofran) 4 mg IV Q6H PRN PRN Reason: Nausea/Vomiting Last Admin: 02/26/20 15:25 Dose: 4 mg Documented by: Sodium Chloride (Saline Flush) 10 ml FLUSH ASDIRECTED PRN PRN Reason: Keep Vein Open Last Admin: 02/25/20 08:57 Dose: 10 ml Documented by: Discontinued Medications Atorvastatin Calcium (Lipitor) 40 mg PO ONETIME ONE Stop: 02/25/20 00:01 Last Admin: 02/25/20 00:07 Dose: 40 mg Documented by: Baclofen (Lioresal) 15 mg PO TID [facility] Last Admin: 02/25/20 23:15 Dose: Not Given Documented by: Baclofen (Lioresal) 15 mg PO ONETIME ONE Stop: 02/25/20 00:01 Last Admin: 02/25/20 00:04 Dose: Not Given Documented by: Carbamazepine (Tegretol Xr) 400 mg PO TID [facility] Last Admin: 02/26/20 09:46 Dose: 400 mg Documented by: Carbamazepine (Tegretol Xr) 400 mg PO 0700,1500,2300 [facility] Last Admin: 02/26/20 14:41 Dose: 400 mg Documented by: Cefuroxime Axetil (Ceftin) 250 mg PO BID [facility] Last Admin: 02/25/20 12:47 Dose: Not Given Documented by: Hydralazine HCl (Apresoline) 10 mg IVPUSH ONETIME ONE Stop: 02/24/20 20:42 Last Admin: 02/24/20 21:08 Dose: 10 mg Documented by: Hydromorphone HCl (Dilaudid) 0.5 mg IVPUSH Q4H PRN PRN Reason: Pain Last Admin: 02/27/20 07:06 Dose: 0.5 mg Documented by: Sodium Chloride (Normal Saline) 500 mls @ 500 mls/hr IV .BOLUS ONE Stop: 02/24/20 21:39 Last Admin: 02/24/20 21:04 Dose: 500 mls/hr Documented by: Sodium Chloride (Normal Saline) 1,000 mls @ 100 mls/hr IV ASDIRECTED [facility] Last Admin: 02/27/20 02:17 Dose: 100 mls/hr Documented by: Ciprofloxacin/Dextrose (Cipro In D5w 200 Mg/100 Ml) 100 mls @ 100 mls/hr IV Q12H [facility] Last Admin: 02/26/20 00:39 Dose: 100 mls/hr Documented by: Losartan Potassium (Cozaar) 50 mg PO DAILY [facility] Losartan Potassium (Cozaar) 100 mg PO ONETIME ONE Stop: 02/25/20 00:01 Last Admin: 02/25/20 00:05 Dose: 100 mg Documented by: Losartan Potassium (Cozaar) Confirm Administered Dose 100 mg .ROUTE .STK-MED ONE Stop: 02/24/20 23:50 Last Admin: 02/25/20 00:04 Dose: Not Given Documented by: Metoclopramide HCl (Reglan) 5 mg IVPUSH ONETIME ONE Stop: 02/25/20 08:45 Last Admin: 02/25/20 08:57 Dose: 5 mg Documented by: Metoprolol Succinate (Toprol Xl) 50 mg PO ONETIME ONE Stop: 02/25/20 00:01 Last Admin: 02/25/20 00:05 Dose: 50 mg Documented by: Ondansetron HCl (Zofran) 4 mg IVPUSH ONETIME ONE Stop: 02/24/20 21:58 Last Admin: 02/24/20 22:10 Dose: 4 mg Documented by: Potassium Chloride (Klor-Con M20) 20 meq PO BID JONY Stop: 02/28/20 09:01 Last Admin: 02/28/20 09:46 Dose: 20 meq Documented by: - Exam General: Alert, Oriented, Cooperative, No Acute Distress (in pain) Lungs: Clear to Auscultation, Normal Respiratory Effort Cardiovascular: Regular Rate, Regular Rhythm GI/Abdominal Exam: Normal Bowel Sounds, Soft, Non-Tender, No Distention Sepsis Event Note - Evaluation Sepsis Screening Result: No Definite Risk - Focused Exam Vital Signs: Vital Signs Temp Pulse Resp BP BP Pulse Ox 02/28/20 15:31 163/88 H 02/28/20 09:47 159/83 H 02/28/20 08:00 98 F 60 18 159/83 H 97 02/28/20 04:30 144/90 H Date Exam was Performed: 02/28/20 Time Exam was Performed: 16:45 - Problem List & Annotations (1) Hypokalemia SNOMED Code(s): 71112952 Code(s): E87.6 - HYPOKALEMIA Status: Resolved Current Visit: Yes (2) Hypertensive urgency SNOMED Code(s): 046243127 Code(s): I16.0 - HYPERTENSIVE URGENCY Status: Resolved Current Visit: No Annotation/Comment:: BP 140-150s with adding Hydrazaline. (3) Trigeminal neuralgia SNOMED Code(s): 94833669 Code(s): G50.0 - TRIGEMINAL NEURALGIA Status: Chronic Current Visit: Yes Annotation/Comment:: On Carbamazapine with Baclofen (4) Gastroesophageal reflux disease SNOMED Code(s): 922450919 Code(s): K21.9 - GASTRO-ESOPHAGEAL REFLUX DISEASE WITHOUT ESOPHAGITIS Status: Chronic Current Visit: No (5) Hypertension SNOMED Code(s): 91349614 Code(s): I10 - ESSENTIAL (PRIMARY) HYPERTENSION Status: Chronic Current Visit: Yes (6) IBS (irritable bowel syndrome) SNOMED Code(s): 14189396 Code(s): K58.9 - IRRITABLE BOWEL SYNDROME WITHOUT DIARRHEA Status: Chronic Current Visit: Yes (7) UTI (urinary tract infection) SNOMED Code(s): 05099092 Code(s): N39.0 - URINARY TRACT INFECTION, SITE NOT SPECIFIED Status: Ruled- out Current Visit: No Qualifiers: Urinary tract infection type: acute cystitis Hematuria presence: without hematuria Qualified Code(s): N30.00 - Acute cystitis without hematuria (8) Tegretol toxicity SNOMED Code(s): 037745537 Code(s): T42.1X1A - POISONING BY IMINOSTILBENES, ACCIDENTAL, INIT Status: Resolved Current Visit: No Qualifiers: Encounter type: initial encounter Injury intent: accidental or unintentional Qualified Code(s): T42.1X1A - Poisoning by iminostilbenes, accidental (unintentional), initial encounter (9) Lightheadedness SNOMED Code(s): 187058978 Code(s): R42 - DIZZINESS AND GIDDINESS Status: Resolved Current Visit: No (10) Hyponatremia SNOMED Code(s): 83379923 Code(s): E87.1 - HYPO-OSMOLALITY AND HYPONATREMIA Status: Resolved Current Visit: No Annotation/Comment:: Resolved - Problem List Review Problem List Initiated/Reviewed/Updated: Yes - Plan Plan:: 1. Sodium, potassium corrected today. 2. Hydralazine 25 mg po q6h, titrate as needed. 3. Tolerated breakfast, did not eat much. Will see how she eats today and plan on discharge tomorrow. 4. Carbamazepine with Baclofen at home dose, may use Vicodin for headache, warm pack to neck.
[2020-02-28] MEDS: Loperamide 2 MG Cap PO PRN ×2 (21:55→21:56)
[2020-02-28] MEDS: atorvaSTATin 40 MG Tab PO SCH (21:57)
[2020-02-28] MEDS: Metoprolol Succinate 50 MG Tab.ER PO SCH (22:11)
[2020-02-28] MEDS: Losartan 100 MG Tab PO SCH (22:12)
[2020-02-29] MEDS: hydrALAZINE 25 MG Tab PO SCH ×2 (03:34→09:29)
[2020-02-29] MEDS: carBAMazepine 200 MG TAB.ER PO SCH (06:24)
[2020-02-29 08:41] VITALS: BP 157/73; PULSE 66
[2020-02-29] MEDS: Baclofen 10 MG Tab PO SCH (08:42)
[2020-02-29] MEDS: Aspirin 81 MG Tab.Chew PO SCH (08:42)
--- NOTE | 2020-02-29 13:16 | DISCH ---
DISCHARGE DATE: 02/29/2020 HISTORY OF PRESENT ILLNESS: Marjorie Shi is a 74-year-old female, admitted to [facility] on 02/25/2020. Presented with headache; nausea; vomiting, 3 days duration; and alteration in medication due to side effects of amlodipine. No fever, chills, sweats, or complicating issue. Has history of complicated neurological trigeminal neuralgia. Being followed by Dr. Eldridge in [place]. Had been switched from amlodipine to spironolactone. Spironolactone is discontinued, placed on hydralazine 25 mg q.6 hours. Repeat labs revealed evidence of hyponatremia necessitating hospitalization. Please see admitting history and physical by Dr. Cm. HOSPITAL COURSE: The patient is admitted to the hospital for treatment. She was given IV fluids, correction of electrolytes, pain control noted, medication adjustments. At the time of discharge, her electrolytes had improved. Sodium went from 125 to 126 to 128 to 136 to 138, potassium 3.7 to 3.5, GFR is still greater than 60, and glucoses were moderating. Tegretol level was performed. DISCHARGE PHYSICAL EXAMINATION: VITAL SIGNS: 1.57 m, 69.57 kg, pulse is 66, 157/73, mean blood pressure 101, respirations 16, O2 saturation 97%. GENERAL: Appears comfortable. Lengthy discussion. HEENT: Unremarkable. NECK: Benign. No JVD. Thyroid small. No carotid bruits. CHEST: On auscultation, clear in all lung [place]. HEART: On auscultation, no ectopy or murmur. ABDOMEN: Benign. No hepatosplenomegaly. EXTREMITIES: Well perfused. ASSESSMENT: 1. Dehydration with hyponatremia. 2. Intolerance to medication. PLAN: Discharge home. We will provide adjustments of medications accordingly. Will follow up with Dr. Eldridge in 1 weeks' time with electrolytes. SURGICAL PROCEDURES: None. CONSULTATIONS: None. DISCHARGE CARE: 30 minutes duration. /[id number] /NARCISO
== END 2020-02-29 13:45 | disposition home or self-care (01) | DRG 641 ==
LOC: FB.ED 19:54 → FB.MS 22:27 → OBSVTOIN 02-25 15:23 → FB.MS 02-28 12:50
PROVIDERS: ADMIT Emergency Medicine; ATTEND Family Medicine
DX: E87.1 Hypo-osmolality and hyponatremia (principal); N30.00 Acute cystitis without hematuria; I16.0 Hypertensive urgency; G50.0 Trigeminal neuralgia; K58.0 Irritable bowel syndrome with diarrhea; E78.00 Pure hypercholesterolemia, unspecified; I10 Essential (primary) hypertension; I34.0 Nonrheumatic mitral (valve) insufficiency; K21.9 Gastro-esophageal reflux disease without esophagitis; Z87.440 Personal history of urinary (tract) infections; T42.1X5A Adverse effect of iminostilbenes, initial encounter; F41.9 Anxiety disorder, unspecified; F32.9 Major depressive disorder, single episode, unspecified; E66.9 Obesity, unspecified; R42 Dizziness and giddiness; K58.9 Irritable bowel syndrome, unspecified; Z68.28 Body mass index [BMI] 28.0-28.9, adult; E86.0 Dehydration; E87.6 Hypokalemia; Z88.5 Allergy status to narcotic agent; Z88.1 Allergy status to other antibiotic agents; Z88.2 Allergy status to sulfonamides; Z88.7 Allergy status to serum and vaccine; Z88.8 Allergy status to other drugs, medicaments and biological substances; Z88.6 Allergy status to analgesic agent; Z79.82 Long term (current) use of aspirin; Z79.899 Other long term (current) drug therapy; Z98.49 Cataract extraction status, unspecified eye; Z90.49 Acquired absence of other specified parts of digestive tract; Z90.89 Acquired absence of other organs
CPT/HCPCS: 36415 ×2; 70450; 80048; 80053; 80156 ×2; 81001; 83735; 84484; 85025 ×2; 85610; 85730; 87086; 93005; 93010; 96361; 96374; 96375; 99285 ×2; A9270 ×3; J0360; J0744; J1170 ×2; J2405 ×2; J2765; J7030 ×2; J7040; U0002; 96365; 96376; G0378

== ENCOUNTER 2021-03-02 02:37 | Emergency (ER) | payer MEDICARE, BC ==
[2021-03-02 02:51] VITALS: BP 137/72; PULSE 80
[2021-03-02] MEDS ORDERED: Acetaminophen/HYDROcodone 325-5 MG Tab PO ONE (03:19)
--- NOTE | 2021-03-02 03:37 | EDM.PDOC ---
ED HPI GENERAL MEDICAL PROBLEM - General Chief Complaint: Lower Extremity Injury/Pain Stated Complaint: fall Time Seen by Provider: 03/02/21 03:20 Source of Information: Reports: Patient History Limitations: Reports: No Limitations - History of Present Illness INITIAL COMMENTS - FREE TEXT/NARRATIVE: 75 yo female was discharged less than 12 hrs ago from [facility] after a 4 d stay for hyponatremia. She seems to have some misunderstanding of her discharge instructions and implies per the discharge instructions she was given that she needed to drink more water than before, 1500 ml of "water". Tonight she was getting up to use the bathroom and got dizzy much like how she felt before she was hospitalized, and fell hitting her head and injuring her ankle. She is not on any blood thinners. She did not lose consciousness. Lives alone since her . She has [place] at home, but did not take any tonight for this injury. Marjorie says she just got over a course of antibiotics for a UTI. Says she has been having a recurrent infection, but has never had any symptoms of an infection(may just be colonized). [facility] was contacted [facility] and they reported that her sodium level at discharge was 136 less than 12 hrs ago. 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 ANALYST: Reports: Other (see below) (none) Left Ankle Pain Score (Numeric/FACES): 7 - Related Data Allergies Allergy/AdvReac Type Severity Reaction Status Date / Time codeine Allergy Confusion Verified 02/24/20 22:27 erythromycin base Allergy Rash Verified 02/24/20 22:27 [Erythromycin Base] indomethacin Allergy Cannot Verified 02/24/20 22:27 Remember meperidine HCl [From Demerol] Allergy Hypotension Verified 02/28/20 09:36 niacin Allergy Rash Verified 02/24/20 22:27 prednisone Allergy Rash Verified 02/24/20 22:27 pregabalin Allergy Cannot Verified 02/24/20 22:27 Remember Sulfa (Sulfonamide Allergy Rash Verified 02/24/20 22:27 Antibiotics) tramadol Allergy Dizziness Verified 02/24/20 22:27 zoster vaccine live Allergy Swelling Verified 02/24/20 22:27 [From ZOSTAVAX (PF)] hydromorphone [From Dilaudid] AdvReac Blurred Verified 02/28/20 09:36 Vision Home Meds: Home Meds atorvaSTATin Calcium [Atorvastatin Calcium] 40 mg PO BEDTIME 05/13/19 [History] Losartan [Cozaar] 100 mg PO BEDTIME 10/03/19 [History] .Probiotic Advanced 1 dose PO DAILY 02/24/20 [History] .Vitamin D 2,000 units PO DAILY 02/24/20 [History] Baclofen 20 mg PO TID 02/24/20 [History] carBAMazepine [Carbamazepine ER] 600 mg PO BEDTIME 02/24/20 [History] Acetaminophen [Tylenol] 650 mg PO Q4H PRN tablet 02/29/20 [Rx] Loperamide [Imodium] 2 mg PO ASDIRECTED PRN cap 02/29/20 [Rx] Losartan [Cozaar] 100 mg PO DAILY 03/02/21 [History] carBAMazepine [TEGretol ER] 400 mg PO BID 03/02/21 [History] hydrALAZINE [Apresoline] 25 mg PO TID 03/02/21 [History] Past Medical History HEENT History: Reports: Other (See Below) Other HEENT History: hx trigeminal neuralgia Cardiovascular History: Reports: High Cholesterol, Hypertension, Other (See Below) Other Cardiovascular History: mitral valve regurgiation Gastrointestinal History: Reports: GERD Genitourinary History: Reports: UTI, Recurrent 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 - Infectious Disease History Infectious Disease History: Reports: Chicken Pox, Measles - Past Surgical History HEENT Surgical History: Reports: Cataract Surgery, Tonsillectomy GI Surgical History: Reports: Cholecystectomy, Colonoscopy, EGD Musculoskeletal Surgical History: Reports: None Social & Family History - Family History Family Medical History: No Pertinent Family History - Tobacco Use Tobacco Use Status *Q: Never Tobacco User - Caffeine Use Caffeine Use: Reports: None Other Caffeine Use: decaf coffee; rarely drink soda and only drinks the small cans. - Recreational Drug Use Recreational Drug Use: No - Living Situation & Occupation Living situation: Reports: Occupation: Retired Review of Systems - Review of Systems Review Of Systems: See Below Constitutional: Reports: No Symptoms Eyes: Reports: No Symptoms Ears: Reports: No Symptoms Nose: Reports: No Symptoms Mouth/Throat: Reports: No Symptoms Respiratory: Reports: No Symptoms Cardiovascular: Reports: Lightheadedness Genitourinary: Reports: No Symptoms Musculoskeletal: Reports: Joint Pain (L lateral ankle) Skin: Reports: No Symptoms Neurological: Reports: No Symptoms ED EXAM, GENERAL - Physical Exam Exam: See Below Exam Limited By: No Limitations General Appearance: Alert, WD/WN, No Apparent Distress Eye Exam: Bilateral Eye: Normal Inspection, PERRL Ears: Normal External Exam, Normal Canal, Hearing Grossly Normal, Normal TMs Ear Exam: Bilateral Ear: Auricle Normal, Canal Normal, TM normal Nose: Normal Inspection, No Blood Throat/Mouth: Normal Inspection, Normal Lips, Normal Oropharynx, Normal Voice, No Airway Compromise Head: Atraumatic, Normocephalic, Other (tenderness on vertex of scalp without swelling or bleeding.) Neck: Normal Inspection, Supple, Non-Tender, Full Range of Motion Respiratory/Chest: No Respiratory Distress, Lungs Clear, Normal Breath Sounds, No Accessory Muscle Use Cardiovascular: Regular Rate, Rhythm, No Edema GI/Abdominal: Soft, Non-Tender, No Distention Back Exam: Normal Inspection. No: CVA Tenderness (R), CVA Tenderness (L) Extremities: Normal Inspection, Normal Range of Motion, Non-Tender, No Pedal Edema Neurological: Alert, Oriented, CN II-XII Intact, Normal Cognition, No Motor/Sensory Deficits Psychiatric: Normal Affect, Normal Mood Skin Exam: Warm, Dry, Intact, Normal Color, No Rash Course - Vital Signs Last Recorded V/S: Last Vital Signs Temp 36.2 C 03/02/21 02:48 Pulse 80 03/02/21 02:48 Resp 18 03/02/21 02:48 BP 137/72 03/02/21 02:48 Pulse Ox 95 03/02/21 02:48 - Orders/Labs/Meds Orders: Active Orders 24 hr Category Date Time Status Ankle Min 3V Lt [CR] Stat Exams 03/02/21 02:59 Taken CULTURE URINE [RM] Stat Lab 03/02/21 03:40 Received Magnesium Oxide Med 03/02/21 04:10 Once 400 mg PO ONETIME ONE NS + KCl 20mEq/L [Normal Saline with 20 mEq KCl] 1,000 Med 03/02/21 04:00 Active ml IV ASDIRECTED Medication Orders Potassium Chloride/Sodium Chloride (Normal Saline With 20 Meq Kcl) 1,000 mls @ 1,000 mls/hr IV ASDIRECTED JONY Last Admin: 03/02/21 04:02 Dose: 1,000 mls/hr Documented by: JENNI Labs: Laboratory Tests 03/02/21 03/02/21 03/02/21 Range/Units 03:37 03:37 03:40 Sodium 131 L (135-145) mmol/L Potassium 3.4 L (3.5-5.3) mmol/L Chloride 93 L D (100-110) mmol/L Carbon Dioxide 28 (21-32) mmol/L BUN 15 (7-18) mg/dL Creatinine 1.0 (0.55-1.02) mg/dL Est Cr Clr Drug Dosing TNP Estimated GFR (MDRD) 54 L (>60) BUN/Creatinine Ratio 15.0 (9-20) Glucose 128 H (80-116) mg/dL Calcium 9.1 (8.6-10.2) mg/dL Magnesium 1.8 (1.8-2.5) mg/dL Urine Color Yellow (YELLOW) Urine Appearance Cloudy (CLEAR) Urine pH 5.0 (5.0-6.5) Ur Specific [place] 1.015 (1.010-1.025) Urine Protein 500 H (NEGATIVE) mg/dL Urine Glucose (UA) Normal (NORMAL) mg/dL Urine Ketones 15 H (NEGATIVE) mg/dL Urine Occult Blood Negative (NEGATIVE) Urine Nitrite Negative (NEGATIVE) Urine Bilirubin Small H (NEGATIVE) Urine Urobilinogen 1 H (NEGATIVE) mg/dL Ur Leukocyte Esterase Large H (NEGATIVE) Urine RBC 0-5 (0-5) Urine WBC 10-20 H (0-5) Ur Squamous Epith Cells Few H (NS,R,O) Urine Bacteria Moderate H (NS) Coarse Granular Casts Few H (NS) Urine Mucus Moderate H (NS) Meds: Medications Generic Name Dose Route Start Last Admin Trade Name Freq PRN Reason Stop Dose Admin Potassium Chloride/Sodium Chloride 1,000 mls @ 1,000 mls/hr 03/02/21 04:00 04:02 Normal Saline With 20 Meq Kcl IV 1,000 mls/hr ASDIRECTED JONY Administration Discontinued Medications Generic Name Dose Route Start Last Admin Trade Name Violet PRN Reason Stop Dose Admin Hydrocodone Bitart/Acetaminophen 1 tab 03/02/21 03:19 03/02/21 03:25 Acetaminophen/Hydrocodone 325-5 Mg Tab PO 03/02/21 03:20 1 tab ONETIME ONE Administration Potassium Chloride 20 meq 03/02/21 03:53 03/02/21 04:01 Potassium Chloride 20 Meq Tab.Er PO 03/02/21 03:54 20 meq ONETIME ONE Administration - Radiology Interpretation Free Text/Narrative:: L ankle N-[id number]-[id number]-displaced distal fibula fx Departure - Departure Time of Disposition: 05:10 Disposition: Home, Self-Care 01 Condition: Fair Clinical Impression: Nondisplaced fracture of distal end of left fibula, Hyponatremia, Hypokalemia Contusion of scalp Qualifiers: Encounter type: initial encounter Qualified Code(s): S00.03XA - Contusion of scalp, initial encounter - Discharge Information *PRESCRIPTION DRUG MONITORING PROGRAM REVIEWED*: Not Applicable *COPY OF PRESCRIPTION DRUG MONITORING REPORT IN PATIENT ISABEL: Not Applicable Instructions: Nondisplaced Fibular Ankle Fracture Treated With Immobilization, Adult, Hyponatremia Referrals: PCP,None [Primary Care Provider] - Forms: ED Department Discharge Additional Instructions: Wear your ankle boot at all times except with bathing. Use your hydrocodone per instructions on the bottle for pain relief. Substitute other fluids for some of the water you have been drinking to help you get your sodium and potassium in order. Its OK to use a little salt on your food to keep your sodium up. See your doctor for recheck early this week so he can refer you to an orthopedic surgeon if needed and so he can keep a close eye on your sodium level. Elevate your left foot to reduce swelling. Sepsis Event Note (ED) - Evaluation Sepsis Screening Result: No Definite Risk - Focused Exam Vital Signs: Vital Signs Temp Pulse Resp BP Pulse Ox 03/02/21 02:48 36.2 C 80 18 137/72 95 - My Orders Last 24 Hours: My Active Orders 03/02/21 02:59 Ankle Min 3V Lt [CR] Stat 03/02/21 03:40 CULTURE URINE [RM] Stat 03/02/21 04:00 NS + KCl 20mEq/L [Normal Saline with 20 mEq KCl] 1,000 ml IV ASDIRECTED 03/02/21 04:10 Magnesium Oxide 400 mg PO ONETIME ONE - Assessment/Plan Last 24 Hours: My Active Orders 03/02/21 02:59 Ankle Min 3V Lt [CR] Stat 03/02/21 03:40 CULTURE URINE [RM] Stat 03/02/21 04:00 NS + KCl 20mEq/L [Normal Saline with 20 mEq KCl] 1,000 ml IV ASDIRECTED 03/02/21 04:10 Magnesium Oxide 400 mg PO ONETIME ONE
[2021-03-02] MEDS ORDERED: Potassium Chloride 20 MEQ Tab.ER PO ONE (03:53)
[2021-03-02] MEDS ORDERED: NS + KCl 20mEq/L 1,000 ML IV SCH (04:00)
[2021-03-02] MEDS ORDERED: Magnesium Oxide 400 MG Tab PO ONE (04:10)
--- NOTE | 2021-03-02 11:19 | CR ---
INDICATION: Fall, injury, pain. LEFT ANKLE: Three views of the left ankle were obtained 03/02/21 and revealed soft tissue swelling especially laterally. An oblique fracture through the distal shaft and metaphysis of the fibula is noted with 1 mm lateral offset of the distal fracture fragment and no significant angulation identified. The ankle mortise appeared to be grossly intact otherwise with no significant degenerative change. Small plantar calcaneal spur is noted. IMPRESSION: Lateral malleolar fracture site with adequate position and alignment. MTDD
== END 2021-03-02 05:21 | disposition home or self-care (01) ==
LOC: FB.ED 02:37
DX: S82.832A Other fracture of upper and lower end of left fibula, initial encounter for closed fracture (principal); S00.03XA Contusion of scalp, initial encounter; E87.6 Hypokalemia; E87.1 Hypo-osmolality and hyponatremia; E78.00 Pure hypercholesterolemia, unspecified; I10 Essential (primary) hypertension; E66.9 Obesity, unspecified; Z68.30 Body mass index [BMI] 30.0-30.9, adult; Z79.899 Other long term (current) drug therapy; Z88.1 Allergy status to other antibiotic agents; Z88.2 Allergy status to sulfonamides; Z88.5 Allergy status to narcotic agent; Z88.8 Allergy status to other drugs, medicaments and biological substances; W18.09XA Striking against other object with subsequent fall, initial encounter; Y92.002 Bathroom of unspecified non-institutional (private) residence as the place of occurrence of the external cause
CPT/HCPCS: 36415; 73610-LT; 80048; 81001; 83735; 87086; 96365; 99283-25; 99284; A9270-GY; J3480

== ENCOUNTER 2021-06-01 20:59 | Emergency (ER) | payer MEDICARE, BC ==
[2021-06-01] MEDS ORDERED: Sodium Chloride 0.9% 10 ML Syringe FLUSH PRN (21:10)
[2021-06-01] MEDS ORDERED: Meclizine 25 MG Tab PO STA (21:12)
[2021-06-01] MEDS ORDERED: Labetalol 20 MG/4 ML Syringe IVPUSH STA ×2 (21:12→21:54)
[2021-06-01] MEDS ORDERED: Ondansetron 4 MG/2 ML SDV IVPUSH STA (21:12)
--- NOTE | 2021-06-01 22:24 | EDM.PDOC ---
ED HPI GENERAL MEDICAL PROBLEM - General Chief Complaint: General Stated Complaint: LIGHT HEADED Time Seen by Provider: 06/01/21 21:05 Source of Information: Reports: Patient, Family History Limitations: Reports: No Limitations - History of Present Illness INITIAL COMMENTS - FREE TEXT/NARRATIVE: Patient presented to the ED because of dizziness, N/V/D x1 day. She feels lightheaded,denies having any chest pain or palpitations. There is no fever, chills, cough/cold symptoms. - Related Data Allergies Allergy/AdvReac Type Severity Reaction Status Date / Time codeine Allergy Confusion Verified 02/24/20 22:27 erythromycin base Allergy Rash Verified 02/24/20 22:27 [Erythromycin Base] indomethacin Allergy Cannot Verified 02/24/20 22:27 Remember meperidine HCl [From Demerol] Allergy Hypotension Verified 02/28/20 09:36 niacin Allergy Rash Verified 02/24/20 22:27 prednisone Allergy Rash Verified 02/24/20 22:27 pregabalin Allergy Cannot Verified 02/24/20 22:27 Remember Sulfa (Sulfonamide Allergy Rash Verified 02/24/20 22:27 Antibiotics) tramadol Allergy Dizziness Verified 02/24/20 22:27 zoster vaccine live Allergy Swelling Verified 02/24/20 22:27 [From ZOSTAVAX (PF)] hydromorphone [From Dilaudid] AdvReac Blurred Verified 02/28/20 09:36 Vision Home Meds: Home Meds atorvaSTATin Calcium [Atorvastatin Calcium] 40 mg PO BEDTIME 05/13/19 [History] Losartan [Cozaar] 100 mg PO BEDTIME 10/03/19 [History] .Probiotic Advanced 1 dose PO DAILY 02/24/20 [History] .Vitamin D 2,000 units PO DAILY 02/24/20 [History] Baclofen 20 mg PO TID 02/24/20 [History] carBAMazepine [Carbamazepine ER] 600 mg PO BEDTIME 02/24/20 [History] Acetaminophen [Tylenol] 650 mg PO Q4H PRN tablet 02/29/20 [Rx] Loperamide [Imodium] 2 mg PO ASDIRECTED PRN cap 02/29/20 [Rx] Losartan [Cozaar] 100 mg PO DAILY 03/02/21 [History] carBAMazepine [TEGretol ER] 400 mg PO BID 03/02/21 [History] hydrALAZINE [Apresoline] 25 mg PO TID 03/02/21 [History] Past Medical History HEENT History: Reports: Other (See Below) Other HEENT History: hx trigeminal neuralgia Cardiovascular History: Reports: High Cholesterol, Hypertension, Other (See Below) Other Cardiovascular History: mitral valve regurgiation Gastrointestinal History: Reports: GERD Genitourinary History: Reports: UTI, Recurrent AMBULANCE PARAMEDIC History: Reports: Other AMBULANCE PARAMEDIC History: Musculoskeletal History: Reports: Fracture Other Musculoskeletal History: hx fx L toes Neurological History: Reports: Other (See Below) Psychiatric History: Reports: Anxiety, Depression Endocrine/Metabolic History: Reports: Obesity/BMI 30+ Other Endocrine/Metabolic History: History of hyponatremia. - Infectious Disease History Infectious Disease History: Reports: Chicken Pox, Measles - Past Surgical History HEENT Surgical History: Reports: Cataract Surgery, Tonsillectomy GI Surgical History: Reports: Cholecystectomy, Colonoscopy, EGD Musculoskeletal Surgical History: Reports: None Social & Family History - Family History Family Medical History: No Pertinent Family History - Caffeine Use Caffeine Use: Reports: None Other Caffeine Use: decaf coffee; rarely drink soda and only drinks the small cans. - Living Situation & Occupation Living situation: Reports: Occupation: Retired ED ROS GENERAL - Review of Systems Review Of Systems: See Below Constitutional: Reports: No Symptoms HEENT: Reports: No Symptoms Respiratory: Reports: No Symptoms Cardiovascular: Reports: No Symptoms Endocrine: Reports: No Symptoms GI/Abdominal: Reports: Diarrhea, Nausea, Vomiting : Reports: No Symptoms Musculoskeletal: Reports: No Symptoms Skin: Reports: No Symptoms Neurological: Reports: Dizziness Psychiatric: Reports: No Symptoms Hematologic/Lymphatic: Reports: No Symptoms ED EXAM, GENERAL - Physical Exam Exam: See Below Exam Limited By: No Limitations General Appearance: Alert, No Apparent Distress Eye Exam: Bilateral Eye: PERRL Ears: Normal External Exam, Normal Canal Nose: Normal Inspection, Normal Mucosa, No Blood Throat/Mouth: Normal Inspection, Normal Lips, Normal Teeth Head: Atraumatic, Normocephalic Neck: Normal Inspection, Supple, Non-Tender, Full Range of Motion Respiratory/Chest: No Respiratory Distress, Lungs Clear, Normal Breath Sounds, No Accessory Muscle Use, Chest Non-Tender Cardiovascular: Normal Peripheral Pulses, Regular Rate, Rhythm, No Edema, No JVD, No Rub GI/Abdominal: Normal Bowel Sounds, Soft, Non-Tender, Other (hyperactive BS) Back Exam: Normal Inspection, Full Range of Motion Extremities: Normal Inspection, Normal Range of Motion, Non-Tender, No Pedal Edema, Normal Capillary Refill Neurological: Alert, Oriented, CN II-XII Intact, Normal Cognition Course - Vital Signs Text/Narrative:: Lab/EKG result was reviewed and discussed with patient LOmotil 2 tabs PO x1 Meclizine 25 mg PO x1 Zofran 4 mg IV x1 Labetalol 20 IV x 2 doses Last Recorded V/S: Last Vital Signs Temp 36.5 C 06/01/21 21:00 Pulse 61 06/01/21 23:00 Resp 16 06/01/21 23:00 BP 160/85 H 06/01/21 23:00 Pulse Ox 96 06/01/21 23:00 - Orders/Labs/Meds Labs: Laboratory Tests 06/01/21 06/01/21 06/01/21 Range/Units 21:25 21:25 21:25 WBC 5.2 (3.0-10.3) x10-3/uL RBC 3.75 (3.60-5.20) x10(6)uL Hgb 12.4 (11.4-15.5) g/dL Hct 36.6 (34.2-48.2) % MCV 97.5 (76.7-100.5) fL MCH 33.1 (23.9-33.9) pg MCHC 34.0 (31.9-34.8) g/dL RDW 12.8 (12.3-16.5) % Plt Count 203 (151-488) x10(3)uL MPV 6.0 L (7.1-12.4) fL Neut % (Auto) 61.9 (30.8-76.2) % Lymph % (Auto) 21.2 (18.4-52.1) % [place] % (Auto) 14.1 (4.4-15.7) % Eos % (Auto) 2.0 (0.6-8.1) % Baso % (Auto) 0.8 (0.2-1.5) % Neut # (Auto) 3.2 (1.5-6.3) x10-3/uL Lymph # (Auto) 1.1 (1.0-4.4) x10-3/uL [place] # (Auto) 0.7 (0.3-1.0) x10-3/uL Eos # (Auto) 0.1 (0.0-0.8) x10-3/uL Baso # (Auto) 0.0 (0.0-0.1) x10-3/uL Sodium 128 L (135-145) mmol/L Potassium 3.8 (3.5-5.3) mmol/L Chloride 93 L (100-110) mmol/L Carbon Dioxide 24 (21-32) mmol/L BUN 8 (7-18) mg/dL Creatinine 0.5 L (0.55-1.02) mg/dL Est Cr Clr Drug Dosing 76.89 mL/min Estimated GFR (MDRD) > 60 (>60) BUN/Creatinine Ratio 16.0 (9-20) Glucose 107 (80-116) mg/dL Calcium 8.2 L (8.6-10.2) mg/dL Total Bilirubin 0.4 (0.1-1.3) mg/dL AST 21 (5-25) IU/L ALT 31 D (12-36) U/L Alkaline Phosphatase 154 H (56-112) IU/L Troponin I 6.0 (4.0-60.3) pg/mL Total Protein 6.6 (6.0-8.0) g/dL Albumin 3.9 (3.2-4.6) g/dL Globulin 2.7 g/dL Albumin/Globulin Ratio 1.4 Meds: Medications Discontinued Medications Generic Name Dose Route Start Last Admin Trade Name Violet PRN Reason Stop Dose Admin Labetalol HCl 20 mg 06/01/21 21:12 06/01/21 21:27 Labetalol 20 Mg/4 Ml Syringe IVPUSH 06/01/21 21:13 20 mg NOW STA Administration Protocol Labetalol HCl 20 mg 06/01/21 21:54 06/01/21 22:01 Labetalol 20 Mg/4 Ml Syringe IVPUSH 06/01/21 21:55 20 mg NOW STA Administration Protocol Loperamide HCl 2 mg 06/01/21 22:49 06/01/21 23:57 Loperamide 2 Mg Cap PO 06/01/21 22:50 Not Given NOW STA Meclizine HCl 25 mg 06/01/21 21:12 06/01/21 21:29 Meclizine 25 Mg Tab PO 06/01/21 21:13 25 mg NOW STA Administration Ondansetron HCl 4 mg 06/01/21 21:12 06/01/21 21:29 Ondansetron 4 Mg/2 Ml Sdv IVPUSH 06/01/21 21:13 4 mg NOW STA Administration Sodium Chloride 10 ml 06/01/21 21:10 06/01/21 21:32 Sodium Chloride 0.9% 10 Ml Syringe FLUSH 10 ml ASDIRECTED PRN Administration Keep Vein Open Departure - Departure Time of Disposition: 22:45 Disposition: Home, Self-Care 01 Condition: Good Clinical Impression: Hypertensive crisis - Discharge Information Instructions: Hypertension, Adult, [id number] Referrals: PCP,None [Primary Care Provider] - Forms: ED Department Discharge Additional Instructions: Please read discharge instructions on hypertension and hypertensive crisis Low salt,low fat diet Exercise Follow up with your doctor this week
[2021-06-01] MEDS ORDERED: Loperamide 2 MG Cap PO STA (22:49)
[2021-06-02 00:01] VITALS: BP 160/85; PULSE 61
--- NOTE | 2021-06-03 13:29 | PCM.EKG ---
#1 Interpretation EKG Date: 06/01/21 Time: 21:46 Rhythm: NSR Rate (Beats/Min): 68 [place]: Normal P-Wave: Present QRS: Normal ST-T: Normal QT: Normal NC/PQ Interval: 227 Comparison: No Change EKG Interpretation Comments: NSR
== END 2021-06-01 23:25 | disposition home or self-care (01) ==
LOC: FB.ED 20:59
DX: I16.9 Hypertensive crisis, unspecified (principal); E78.00 Pure hypercholesterolemia, unspecified; I10 Essential (primary) hypertension; E66.9 Obesity, unspecified; Z68.24 Body mass index [BMI] 24.0-24.9, adult; Z79.899 Other long term (current) drug therapy; Z88.5 Allergy status to narcotic agent; Z88.1 Allergy status to other antibiotic agents; Z88.2 Allergy status to sulfonamides; Z88.8 Allergy status to other drugs, medicaments and biological substances
CPT/HCPCS: 36415; 80053; 84484; 85025; 93005; 96374; 96375; 96376; 99284-25; A9270-GY; J2405; J3490

== ENCOUNTER 2022-01-16 20:18 | Emergency (ER) | payer MEDICARE, BC ==
[2022-01-16] MEDS ORDERED: Sodium Chloride 0.9% 10 ML Syringe FLUSH PRN (22:03)
[2022-01-16] MEDS: hydrALAZINE 25 MG Tab PO ONE (22:56)
[2022-01-17 00:35] VITALS: PULSE 73
[2022-01-17 00:36] VITALS: BP 198/76
== END 2022-01-16 23:07 | disposition home or self-care (01) ==
LOC: FB.ED 20:18
DX: R01.1 Cardiac murmur, unspecified (principal); R20.2 Paresthesia of skin; R60.0 Localized edema; R53.1 Weakness; E78.00 Pure hypercholesterolemia, unspecified; I10 Essential (primary) hypertension; E66.9 Obesity, unspecified; Z68.27 Body mass index [BMI] 27.0-27.9, adult; Z90.49 Acquired absence of other specified parts of digestive tract; Z79.899 Other long term (current) drug therapy; Z88.5 Allergy status to narcotic agent; Z88.1 Allergy status to other antibiotic agents; Z88.6 Allergy status to analgesic agent; Z88.8 Allergy status to other drugs, medicaments and biological substances; Z88.3 Allergy status to other anti-infective agents; Z88.2 Allergy status to sulfonamides; Z88.7 Allergy status to serum and vaccine
CPT/HCPCS: 36415; 80053; 83880; 84484; 85025; 93005; 93010; 99283; 99284-25; A9270-GY

== ENCOUNTER 2022-10-04 20:07 | Emergency (ER) | payer BC, MEDICARE ==
[2022-10-04 21:36] LABS: ESTIMATED GFR 93 mL/min (>60)
[2022-10-05 00:06] VITALS: BP 154/89; PULSE 79
[2022-10-05] MEDS ORDERED: Cephalexin 500 MG Cap PO ONE (00:10)
== END 2022-10-05 00:43 | disposition home or self-care (01) ==
LOC: FB.ED 20:07
DX: E86.0 Dehydration (principal); N39.0 Urinary tract infection, site not specified; E78.00 Pure hypercholesterolemia, unspecified; I10 Essential (primary) hypertension; K21.9 Gastro-esophageal reflux disease without esophagitis; E66.9 Obesity, unspecified; Z68.25 Body mass index [BMI] 25.0-25.9, adult; Z88.8 Allergy status to other drugs, medicaments and biological substances; Z88.5 Allergy status to narcotic agent; Z88.6 Allergy status to analgesic agent; Z88.1 Allergy status to other antibiotic agents; Z88.2 Allergy status to sulfonamides; Z88.7 Allergy status to serum and vaccine; Z79.899 Other long term (current) drug therapy
CPT/HCPCS: 36415; 70450; 80053; 81001; 83735; 84484; 85025; 86140; 87086; 87088; 87186; 93005; 93010; 99283; 99284

== ENCOUNTER 2022-10-05 19:41 | Emergency (ER) | payer MEDICARE, BC ==
[2022-10-05] MEDS: Metoclopramide 10 MG/2 ML SDV IM ONE (20:19)
[2022-10-05] MEDS: Ketorolac 30 MG/ML SDV IM ONE (20:19)
[2022-10-05 21:22] VITALS: BP 174/96; PULSE 84
== END 2022-10-05 21:19 | disposition home or self-care (01) ==
LOC: FB.ED 19:41
DX: G44.209 Tension-type headache, unspecified, not intractable (principal); N39.0 Urinary tract infection, site not specified; E78.00 Pure hypercholesterolemia, unspecified; I10 Essential (primary) hypertension; E66.9 Obesity, unspecified; Z68.26 Body mass index [BMI] 26.0-26.9, adult; Z88.5 Allergy status to narcotic agent; Z88.8 Allergy status to other drugs, medicaments and biological substances; Z88.1 Allergy status to other antibiotic agents; Z88.2 Allergy status to sulfonamides; Z88.7 Allergy status to serum and vaccine; Z79.899 Other long term (current) drug therapy
CPT/HCPCS: 96372; 99283; J1885; J2765

== ENCOUNTER 2023-03-15 19:43 | Observation (INO) | payer MEDICARE, BC ==
[2023-03-15] MEDS ORDERED: Sodium Chloride 0.9% 10 ML Syringe FLUSH PRN (20:23)
[2023-03-15] MEDS ORDERED: Sodium Chloride 0.9% 500 ML IV ONE ×2 (20:23→21:55)
[2023-03-15] MEDS ORDERED: Ondansetron 4 MG/2 ML SDV IVPUSH ONE (20:23)
[2023-03-15 20:44] LABS: BASOPHILS PERCENT AUTO 0.1 % (0.2-1.5); HEMATOCRIT 42.6 % (34.2-48.2); HEMOGLOBIN 14.6 g/dL (11.4-15.5); LYMPHOCYTES ABSOLUTE AUTO 0.4 x10-3/uL (1.0-4.4); LYMPHOCYTES PERCENT AUTO 4.2 % (18.4-52.1); MEAN CORPUSCULAR HEMOGLOBIN 33.6 pg (23.9-33.9); MEAN CORPUSCULAR HGB CONC 34.2 g/dL (31.9-34.8); MEAN PLATELET VOLUME 6.8 fL (7.1-12.4); NEUTROPHILS ABSOLUTE AUTO 8.3 x10-3/uL (1.5-6.3); NEUTROPHILS PERCENT AUTO 85.7 % (30.8-76.2); PLATELET COUNT,PLT 212 x10(3)uL (151-488); RED BLOOD CELL COUNT 4.34 x10(6)uL (3.60-5.20); RED CELL DISTRIBUTION WIDTH 12.8 % (12.3-16.5); WHITE BLOOD CELL COUNT,WBC 9.7 x10-3/uL (3.0-10.3)
[2023-03-15 20:46] LABS: BLOOD UREA NITROGEN,BUN 19 mg/dL (7-18); BUN/CREATININE RATIO 15.8 (9-20); CALCIUM 9.6 mg/dL (8.6-10.2); CARBON DIOXIDE,CO2 26 mmol/L (21-32); CHLORIDE,CL 93 mmol/L (100-110); CREATININE 1.2 mg/dL (0.55-1.02); ESTIMATED GFR 47 mL/min (>60); GLUCOSE RANDOM 138 mg/dL (80-116); POTASSIUM,K 3.8 mmol/L (3.5-5.3); SODIUM,NA 130 mmol/L (135-145)
[2023-03-15 20:52] LABS: A/G RATIO 1.5; ALANINE AMINOTRANSFERASE,ALT 30 U/L (12-36); ALBUMIN 4.3 g/dL (3.2-4.6); ALKALINE PHOSPHATASE 88 IU/L (56-112); ASPARTATE AMNIOTRANSFERASE,AST 35 IU/L (5-25); BILIRUBIN TOTAL 0.7 mg/dL (0.1-1.3); MAGNESIUM 1.8 mg/dL (1.8-2.5); PROTEIN TOTAL,TP 7.2 g/dL (6.0-8.0)
[2023-03-15 20:56] LABS: C-REACTIVE PROTEIN < 0.2 mg/dL (0.5-0.9); TROPONIN I 297.2 pg/mL (4.0-60.3)
[2023-03-15] MEDS ORDERED: Aspirin 81 MG Tab.Chew PO ONE (22:04)
[2023-03-15] MEDS ORDERED: Sodium Chloride 0.9% 1,000 ML IV ONE (23:05)
[2023-03-16 01:25] LABS: BILIRUBIN,URINE NEGATIVE (NEGATIVE); GLUCOSE,URINE NORMAL (NORMAL); KETONES,URINE 15 mg/dL (NEGATIVE); LEUKOCYTE ESTERASE,URINE NEGATIVE (NEGATIVE); NITRITE,URINE NEGATIVE (NEGATIVE); OCCULT BLOOD,URINE NEGATIVE (NEGATIVE); PROTEIN,URINE TRACE mg/dL (NEGATIVE); UROBILINOGEN,URINE NORMAL (NEGATIVE)
[2023-03-16 01:36] LABS: APPEARANCE,URINE CLEAR (CLEAR); BACTERIA,URINE MODERATE (NS); COARSE GRANULAR CASTS,URINE OCCASIONAL (NS); COLOR,URINE YELLOW (YELLOW); RBC,URINE 0-5 (0-5); SQUAMOUS EPITHELIAL CELLS,UR FEW (NS,R,O); WBC,URINE 0-5 (0-5)
[2023-03-16] MEDS ORDERED: Ondansetron 4 MG/2 ML SDV IV PRN (02:53)
[2023-03-16] MEDS: Sodium Chloride 0.9% 1,000 ML IV SCH ×2 (04:00→12:04)
[2023-03-16 06:37] LABS: BASOPHILS PERCENT AUTO 0.2 % (0.2-1.5); EOSINOPHILS PERCENT AUTO 0.2 % (0.6-8.1); HEMOGLOBIN 13.6 g/dL (11.4-15.5); LYMPHOCYTES ABSOLUTE AUTO 0.8 x10-3/uL (1.0-4.4); LYMPHOCYTES PERCENT AUTO 10.3 % (18.4-52.1); MEAN CORPUSCULAR HEMOGLOBIN 33.4 pg (23.9-33.9); MEAN CORPUSCULAR HGB CONC 33.9 g/dL (31.9-34.8); MEAN CORPUSCULAR VOLUME 98.6 fL (76.7-100.5); MEAN PLATELET VOLUME 6.7 fL (7.1-12.4); MONOCYTES ABSOLUTE AUTO 1.1 x10-3/uL (0.3-1.0); MONOCYTES PERCENT AUTO 15.2 % (4.4-15.7); NEUTROPHILS ABSOLUTE AUTO 5.6 x10-3/uL (1.5-6.3); NEUTROPHILS PERCENT AUTO 74.1 % (30.8-76.2); PLATELET COUNT,PLT 186 x10(3)uL (151-488); RED BLOOD CELL COUNT 4.06 x10(6)uL (3.60-5.20); RED CELL DISTRIBUTION WIDTH 12.9 % (12.3-16.5); WHITE BLOOD CELL COUNT,WBC 7.5 x10-3/uL (3.0-10.3)
[2023-03-16 06:44] LABS: BLOOD UREA NITROGEN,BUN 17 mg/dL (7-18); CALCIUM 8.7 mg/dL (8.6-10.2); CARBON DIOXIDE,CO2 27 mmol/L (21-32); CHLORIDE,CL 103 mmol/L (100-110); ESTIMATED GFR 58 mL/min (>60); GLUCOSE RANDOM 108 mg/dL (80-116); POTASSIUM,K 3.4 mmol/L (3.5-5.3); SODIUM,NA 138 mmol/L (135-145)
[2023-03-16] MEDS ORDERED: Metoprolol Tartrate 25 MG Tab PO SCH (10:30)
[2023-03-16] MEDS ORDERED: Cholecalciferol (Vitamin D3) 25 MCG Tab *PTOM PO SCH (10:30)
[2023-03-16] MEDS: HYDRALAZINE HCL 100 MG PO SCH ×2 (11:06→14:36)
[2023-03-16] MEDS: CARBAMAZEPINE 200 MG PO SCH ×2 (11:08→14:37)
[2023-03-16 16:26] VITALS: BP 120/52; PULSE 104
[2023-03-16] MEDS ORDERED: Losartan 100 MG Tab *PTOM PO SCH (21:00)
[2023-03-17] MEDS ORDERED: Potassium Chloride 10 MEQ Tab.ER *PTOM PO SCH (09:00)
[2023-03-17] MEDS ORDERED: Furosemide 20 MG Tab *PTOM PO SCH (09:00)
== END 2023-03-16 19:10 ==
LOC: FB.ED 19:43 → FB.MS 03-16 02:21
PROVIDERS: ADMIT Emergency Medicine; ATTEND Family Medicine
DX: I21.4 Non-ST elevation (NSTEMI) myocardial infarction (principal); R41.82 Altered mental status, unspecified; R77.8 Other specified abnormalities of plasma proteins; E86.0 Dehydration; R11.10 Vomiting, unspecified; E87.1 Hypo-osmolality and hyponatremia; I10 Essential (primary) hypertension; E78.00 Pure hypercholesterolemia, unspecified; K21.9 Gastro-esophageal reflux disease without esophagitis; F32.A Depression, unspecified; F41.9 Anxiety disorder, unspecified; E66.9 Obesity, unspecified; Z79.899 Other long term (current) drug therapy; Z20.822 Contact with and (suspected) exposure to COVID-19; Z88.5 Allergy status to narcotic agent; Z88.8 Allergy status to other drugs, medicaments and biological substances; Z88.1 Allergy status to other antibiotic agents; Z88.2 Allergy status to sulfonamides; Z98.890 Other specified postprocedural states
CPT/HCPCS: 36415; 70450; 71045; 80048; 80053; 81001; 83605; 83735; 84295; 84484; 85025; 86140; 87230; 93005; 96361; 96374; 99235; 99285; A9270; G0378; J2405; J3490; J7030; J7040; U0002

== ENCOUNTER 2024-03-22 14:57 | Inpatient (IN) | payer MEDICARE, BC ==
[2024-03-22] MEDS: Labetalol 20 MG/4 ML Syringe IVPUSH ONE (15:23)
[2024-03-22] MEDS: Sodium Chloride 0.9% 10 ML Syringe FLUSH PRN (15:25)
[2024-03-22 15:46] LABS: BASOPHILS PERCENT AUTO 0.6 % (0.2-1.5); EOSINOPHILS ABSOLUTE AUTO 0.1 x10-3/uL (0.0-0.8); EOSINOPHILS PERCENT AUTO 2.1 % (0.6-8.1); HEMATOCRIT 38.4 % (34.2-48.2); HEMOGLOBIN 13.4 g/dL (11.4-15.5); LYMPHOCYTES ABSOLUTE AUTO 1.1 x10-3/uL (1.0-4.4); MEAN CORPUSCULAR HEMOGLOBIN 34.1 pg (23.9-33.9); MEAN CORPUSCULAR HGB CONC 34.9 g/dL (31.9-34.8); MEAN CORPUSCULAR VOLUME 97.6 fL (76.7-100.5); MEAN PLATELET VOLUME 6.4 fL (7.1-12.4); MONOCYTES ABSOLUTE AUTO 0.7 x10-3/uL (0.3-1.0); MONOCYTES PERCENT AUTO 16.7 % (4.4-15.7); NEUTROPHILS ABSOLUTE AUTO 2.2 x10-3/uL (1.5-6.3); NEUTROPHILS PERCENT AUTO 53.6 % (30.8-76.2); PLATELET COUNT,PLT 200 x10(3)uL (151-488); RED BLOOD CELL COUNT 3.93 x10(6)uL (3.60-5.20); RED CELL DISTRIBUTION WIDTH 13.1 % (12.3-16.5); WHITE BLOOD CELL COUNT,WBC 4.1 x10-3/uL (3.0-10.3)
[2024-03-22 15:55] LABS: A/G RATIO 1.3; ALANINE AMINOTRANSFERASE,ALT 28 U/L (12-36); ALBUMIN 3.9 g/dL (3.2-4.6); ALKALINE PHOSPHATASE 102 IU/L (56-112); ASPARTATE AMNIOTRANSFERASE,AST 27 IU/L (5-25); BILIRUBIN TOTAL 0.5 mg/dL (0.1-1.3); BLOOD UREA NITROGEN,BUN 10 mg/dL (7-18); BUN/CREATININE RATIO 16.7 (9-20); CALCIUM 8.9 mg/dL (8.6-10.2); CARBON DIOXIDE,CO2 28 mmol/L (21-32); CREATININE 0.6 mg/dL (0.55-1.02); ESTIMATED GFR 92 mL/min (>60); GLUCOSE RANDOM 109 mg/dL (80-116); POTASSIUM,K 3.9 mmol/L (3.5-5.3); SODIUM,NA 123 mmol/L (135-145)
[2024-03-22 16:00] LABS: TROPONIN I 6.1 pg/mL (4.0-60.3)
[2024-03-22 16:01] LABS: CHLORIDE,CL 88 mmol/L (100-110)
[2024-03-22] MEDS: hydrALAZINE 20 MG/ML SDV IVPUSH ONE (16:06)
[2024-03-22] MEDS ORDERED: Ketorolac 30 MG/ML SDV IVPUSH ONE (18:06)
[2024-03-22] MEDS: Acetaminophen 500 MG Tab PO ONE (18:12)
[2024-03-22] MEDS: Ketorolac 30 MG/ML SDV IVPUSH ONE (18:12)
[2024-03-22] MEDS: Losartan 50 MG Tab PO ONE (18:51)
[2024-03-22] MEDS: Ondansetron 4 MG/2 ML SDV IVPUSH ONE (19:24)
[2024-03-22] MEDS: Sodium Chloride 0.9% 1,000 ML IV SCH (19:35)
[2024-03-22 21:11] LABS: BLOOD UREA NITROGEN,BUN 10 mg/dL (7-18); BUN/CREATININE RATIO 14.3 (9-20); CALCIUM 8.1 mg/dL (8.6-10.2); CARBON DIOXIDE,CO2 23 mmol/L (21-32); CHLORIDE,CL 90 mmol/L (100-110); CREATININE 0.7 mg/dL (0.55-1.02); EST CRCL DRUG DOSING (CG) 55.68 mL/min; ESTIMATED GFR 89 mL/min (>60); GLUCOSE RANDOM 137 mg/dL (80-116); POTASSIUM,K 3.9 mmol/L (3.5-5.3); SODIUM,NA 123 mmol/L (135-145)
[2024-03-22] MEDS: Iopamidol 755 Mg/ML 100 ML Bottle IV ONE (21:26)
[2024-03-22 22:15] LABS: BILIRUBIN,URINE NEGATIVE (NEGATIVE); GLUCOSE,URINE NORMAL (NORMAL); KETONES,URINE NEGATIVE (NEGATIVE); LEUKOCYTE ESTERASE,URINE SMALL (NEGATIVE); NITRITE,URINE NEGATIVE (NEGATIVE); OCCULT BLOOD,URINE NEGATIVE (NEGATIVE); PROTEIN,URINE NEGATIVE (NEGATIVE); UROBILINOGEN,URINE NORMAL (NEGATIVE)
[2024-03-22 22:16] LABS: AMORPHOUS SEDIMENT,URINE MODERATE; APPEARANCE,URINE SLIGHTLY CLOUDY (CLEAR); BACTERIA,URINE MODERATE (NS); COLOR,URINE YELLOW (YELLOW); RBC,URINE 0-5 (0-5); SQUAMOUS EPITHELIAL CELLS,UR OCCASIONAL (NS,R,O)
[2024-03-22] MEDS ORDERED: cefTRIAXone 1 GM Vial IVPUSH SCH (22:30)
[2024-03-22] MEDS: cefTRIAXone 1 GM Vial IVPUSH STA (22:36)
[2024-03-22] MEDS ORDERED: Sennosides/Docusate Sodium 50-8.6 MG Tab PO PRN (23:23)
[2024-03-23] MEDS ORDERED: Baclofen 10 MG Tab PO SCH (07:00)
[2024-03-23 07:48] LABS: BASOPHILS PERCENT AUTO 0.1 % (0.2-1.5); EOSINOPHILS PERCENT AUTO 0.1 % (0.6-8.1); HEMOGLOBIN 12.8 g/dL (11.4-15.5); LYMPHOCYTES ABSOLUTE AUTO 1.1 x10-3/uL (1.0-4.4); LYMPHOCYTES PERCENT AUTO 16.3 % (18.4-52.1); MEAN CORPUSCULAR HEMOGLOBIN 34.9 pg (23.9-33.9); MEAN CORPUSCULAR HGB CONC 35.7 g/dL (31.9-34.8); MEAN CORPUSCULAR VOLUME 97.9 fL (76.7-100.5); MEAN PLATELET VOLUME 6.7 fL (7.1-12.4); MONOCYTES ABSOLUTE AUTO 0.8 x10-3/uL (0.3-1.0); MONOCYTES PERCENT AUTO 11.7 % (4.4-15.7); NEUTROPHILS PERCENT AUTO 71.8 % (30.8-76.2); PLATELET COUNT,PLT 214 x10(3)uL (151-488); RED BLOOD CELL COUNT 3.67 x10(6)uL (3.60-5.20); RED CELL DISTRIBUTION WIDTH 12.7 % (12.3-16.5)
[2024-03-23] MEDS ORDERED: Cholecalciferol (Vitamin D3) 25 MCG Tab PO SCH (09:00)
[2024-03-23] MEDS ORDERED: carBAMazepine 200 MG TAB.ER PO SCH (09:00)
[2024-03-23] MEDS ORDERED: hydrALAZINE 50 MG Tab PO SCH (09:00)
[2024-03-23 11:44] LABS: A/G RATIO 1.3; ALANINE AMINOTRANSFERASE,ALT 24 U/L (12-36); ALBUMIN 3.5 g/dL (3.2-4.6); ALKALINE PHOSPHATASE 84 IU/L (56-112); ASPARTATE AMNIOTRANSFERASE,AST 25 IU/L (5-25); BILIRUBIN TOTAL 0.6 mg/dL (0.1-1.3); BLOOD UREA NITROGEN,BUN 8 mg/dL (7-18); BUN/CREATININE RATIO 13.3 (9-20); CALCIUM 8.2 mg/dL (8.6-10.2); CARBON DIOXIDE,CO2 26 mmol/L (21-32); CHLORIDE,CL 90 mmol/L (100-110); CREATININE 0.6 mg/dL (0.55-1.02); EST CRCL DRUG DOSING (CG) 64.95 mL/min; ESTIMATED GFR 92 mL/min (>60); GLUCOSE RANDOM 124 mg/dL (80-116); POTASSIUM,K 3.6 mmol/L (3.5-5.3); PROTEIN TOTAL,TP 6.2 g/dL (6.0-8.0); SODIUM,NA 124 mmol/L (135-145)
[2024-03-23] MEDS: Enoxaparin 40 MG/0.4 ML Syringe SUBCUT SCH (14:19)
[2024-03-23] MEDS: Saccharomyces Boulardii (Probiotic) 250 MG Cap PO SCH (14:20)
[2024-03-23] MEDS: hydrALAZINE 25 MG Tab PO SCH (14:20)
[2024-03-23] MEDS: Baclofen 10 MG Tab PO SCH (14:20)
[2024-03-23] MEDS: Mirabegron 25 MG Tab Extended Release PO SCH (14:20)
[2024-03-23] MEDS: Magnesium Chloride 64 MG Tab.ER PO SCH (14:20)
[2024-03-23] MEDS: carBAMazepine 200 MG TAB.ER PO SCH (14:21)
[2024-03-23] MEDS: Cholecalciferol (Vitamin D3) 25 MCG Tab PO SCH (14:21)
[2024-03-23] MEDS: Multivitamin Tab PO SCH (14:21)
[2024-03-23] MEDS: Metoprolol Succinate 25 MG Tab.ER PO SCH (14:21)
[2024-03-23] MEDS: cefTRIAXone 1 GM Vial IVPUSH SCH (14:35)
[2024-03-23] MEDS: Hydrochlorothiazide 12.5 MG Cap PO SCH (14:35)
[2024-03-23] MEDS: Acetaminophen 325 MG Tab PO PRN (20:15)
[2024-03-23] MEDS: Amitriptyline 10 MG Tab PO SCH (20:17)
[2024-03-23] MEDS: Rosuvastatin 5 MG Tab PO SCH (20:17)
[2024-03-23] MEDS: Losartan 100 MG Tab PO SCH (20:17)
[2024-03-23] MEDS: Ondansetron 4 MG/2 ML SDV IV PRN (20:32)
[2024-03-23] MEDS: Sodium Chloride 0.9% 1,000 ML IV SCH (20:35)
[2024-03-24] MEDS: Melatonin 3 MG Tab PO PRN (00:37)
[2024-03-24 07:11] LABS: HEMATOCRIT 34.5 % (34.2-48.2); MEAN CORPUSCULAR HEMOGLOBIN 34.1 pg (23.9-33.9); MEAN CORPUSCULAR HGB CONC 34.8 g/dL (31.9-34.8); MEAN CORPUSCULAR VOLUME 97.9 fL (76.7-100.5); MEAN PLATELET VOLUME 6.1 fL (7.1-12.4); PLATELET COUNT,PLT 190 x10(3)uL (151-488); RED BLOOD CELL COUNT 3.52 x10(6)uL (3.60-5.20); RED CELL DISTRIBUTION WIDTH 12.6 % (12.3-16.5)
[2024-03-24 07:15] LABS: BLOOD UREA NITROGEN,BUN 4 mg/dL (7-18); CARBON DIOXIDE,CO2 27 mmol/L (21-32); CHLORIDE,CL 101 mmol/L (100-110); CREATININE 0.5 mg/dL (0.55-1.02); EST CRCL DRUG DOSING (CG) 77.95 mL/min; ESTIMATED GFR 97 mL/min (>60); GLUCOSE RANDOM 94 mg/dL (80-116); POTASSIUM,K 3.2 mmol/L (3.5-5.3); SODIUM,NA 135 mmol/L (135-145)
[2024-03-24 07:27] LABS: EOSINOPHILS PERCENT MAN 3 % (0-5); LYMPHOCYTES PERCENT MAN 26 % (13-37); MONOCYTES PERCENT MAN 17 % (4-12); SEG NEUTROPHILS PERCENT MAN 54 % (46-82)
[2024-03-24] MEDS ORDERED: Hydrochlorothiazide 12.5 MG Cap PO SCH (09:00)
[2024-03-24] MEDS: amLODIPine 5 MG Tab PO SCH (09:16)
[2024-03-24] MEDS: Nitrofurantoin Monohydrate/Macrocrystalline 100 MG Cap PO SCH (09:16)
[2024-03-24] MEDS: Potassium Chloride 20 MEQ Tab.ER PO ONE (10:27)
[2024-03-24 12:37] VITALS: BP 162/84; PULSE 68
[2024-03-24 16:37] LABS: OSMOLALITY 251 mOsm/kg (280-303)
== END 2024-03-24 11:15 | disposition home or self-care (01) | DRG 641 ==
LOC: FB.ED 14:57 → FB.MS 23:27 → OBSVTOIN 23:27
PROVIDERS: ADMIT Emergency Medicine; ATTEND Family Medicine
DX: R41.82 Altered mental status, unspecified (principal); E87.1 Hypo-osmolality and hyponatremia; I16.9 Hypertensive crisis, unspecified; N39.0 Urinary tract infection, site not specified; I10 Essential (primary) hypertension; I25.10 Atherosclerotic heart disease of native coronary artery without angina pectoris; E86.0 Dehydration; G50.0 Trigeminal neuralgia; E87.8 Other disorders of electrolyte and fluid balance, not elsewhere classified; F41.9 Anxiety disorder, unspecified; F32.A Depression, unspecified; K21.9 Gastro-esophageal reflux disease without esophagitis; E78.00 Pure hypercholesterolemia, unspecified; B96.20 Unspecified Escherichia coli [E. coli] as the cause of diseases classified elsewhere; E66.9 Obesity, unspecified; Z90.49 Acquired absence of other specified parts of digestive tract; Z88.1 Allergy status to other antibiotic agents; Z98.49 Cataract extraction status, unspecified eye; Z90.89 Acquired absence of other organs; Z88.2 Allergy status to sulfonamides; Z88.8 Allergy status to other drugs, medicaments and biological substances; Z88.5 Allergy status to narcotic agent; Z79.899 Other long term (current) drug therapy; Z68.27 Body mass index [BMI] 27.0-27.9, adult
CPT/HCPCS: 36415; 70450; 70496; 70498; 71045; 80048; 80053; 81001; 83880; 84484 ×2; 85025; 85379; 87086; 87088; 87186; 93005; 96361; 96374; 96375; 99285; A9270 ×2; J0360; J0696; J1885; J1920; J2405; J3490; J7030; Q9967; U0002; 83930; 84295; 94150; 99223; 99238; J1650